=== PATIENT | female | born 1950 | race Two or more races ===

== ENCOUNTER 2016-06-20 02:07 | Inpatient (IN) | payer MEDICARE ==
--- NOTE | ~2016-06-20 | CN ---
Consultation Report [facility] [address] [place]. [address] NAME: KAROLINA FINN : 48 STATUS : ADM IN [facility]#: [id number] AGE: 66 ADM/REG DATE : 06/20/16 MR#: [id number] REPORT SERV DATE: 06/22/16 DICTATED BY: CARLYLE JACKSON DATE: 06/22/16 REPORT STATUS : Draft TRANSCRIBED BY: MODL DATE: 06/22/16 GI CONSULTATION DATE OF CONSULTATION: 06/20/2016 REASON FOR CONSULTATION: Heme-positive brown stool. HISTORY OF PRESENT ILLNESS: Ms. Finn is a 66-year-old female, who has history of hypertension, chronic kidney disease stage 3, dyslipidemia, who had been feeling ill over the past couple of weeks with increasing fatigue, dyspnea on exertion, nausea, vomiting, and diarrhea. She also has some anorexia and noticed a rash all over her body. She does have chronic hyponatremia with a sodium between 122 to 125 at baseline and it was 16 on admission. She also had a BUN of 84 and creatinine of 12.8 and was admitted to the CCU for further evaluation and management. GI has been consulted because her hemoglobin and hematocrit were low at 7.5 and 20.6. On admission, they were 5.3 and 15.1, but on digital rectal exam, she had brown stool, which was Hemoccult positive. Her MCV is 78.3, platelets 181. INR 1.3. She is currently undergoing dialysis for management of the above. PAST MEDICAL HISTORY: Hypertension, kidney stones, pre-eclampsia, dyslipidemia, chronic kidney disease stage 3, and gout. PAST SURGICAL HISTORY: . FAMILY HISTORY: Hypertension and diabetes. SOCIAL HISTORY: No smoking, alcohol, or drug use. 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 MEDICATIONS: Reviewed. ALLERGIES: REVIEWED. PHYSICAL EXAMINATION: VITAL SIGNS: The patient is afebrile. Her vital signs have been stable while in the unit. HEENT: Atraumatic and normocephalic. Anicteric. Mucous membranes moist. SKIN: She does have a rash all over her body. CARDIAC: S1 and S2. CHEST: Poor inspiratory and expiratory effort, but appears clear otherwise. ABDOMEN: Soft, nontender, nondistended. Positive bowel sounds. LABORATORY DATA: Showed WBC 9.8; hemoglobin 7.5, from 5.3; hematocrit 20.6, from 15.1; MCV 78.3; platelets 181. INR is 1.3. Sodium 142, potassium 4.2, chloride 88, bicarb 9, BUN 84, creatinine 12.8, glucose 62. IMPRESSION AND PLAN: GI has been consulted for heme-positive brown stools. Given the Consultation Report [place] [address] [place]. [address] NAME: KAROLINA FINN : [birth year] STATUS : ADM IN PAT#: [id number] AGE: 66 ADM/REG DATE : 06/20/16 MR#: [id number] REPORT SERV DATE: 06/22/16 DICTATED BY: CARLYLE JACKSON DATE: 06/22/16 REPORT STATUS : Draft TRANSCRIBED BY: DANIELE DATE: 06/22/16 patient's other comorbidities and acute clinical picture, would like to have her other more pressing problems stabilized before further investigation with endoscopy. After she becomes more stable, I may warrant endoscopic evaluation with EGD plus or minus colonoscopy. She had been seen by Dr. Dc Edwards in the past, so we will get these records and see when her last endoscopic procedures were performed. Thank you for this consultation. We will continue to follow as needed. CHEMA/DANIELE Carlyle Jackson MD / [id number] CC: Tila Salcedo MD
--- NOTE | ~2016-06-20 | OP ---
Record Of Operation [facility] [address] [place]. [address] NAME: KAROLINA CHA : 48 STATUS : ADM IN [facility]#: [id number] AGE: 66 ADM/REG DATE : 06/20/16 MR#: [id number] REPORT SERV DATE: 06/25/16 DICTATED BY: TASHI SAUNDERS DATE: 06/25/16 REPORT STATUS : Draft TRANSCRIBED BY: MODMarcela DATE: 06/25/16 DATE OF PROCEDURE: 06/24/2016 PREOPERATIVE DIAGNOSES: End-stage renal disease. POSTOPERATIVE DIAGNOSIS: End-stage renal disease. PROCEDURES: 1. Left brachiocephalic arteriovenous fistula. 2. Right IJ PermCath. SURGEON: Tashi Saunders M.D. ASSEMBLER DC FIELD RING: Andrzej Umaña. ANESTHESIA: Block and local. INDICATIONS: The patient is a 66-year-old female who has a history of chronic kidney disease, but presented with end-stage renal disease. I placed a Vas-Cath and now she needs longer term access. Risks, benefits, and alternatives were discussed. She agreed to proceed. DESCRIPTION OF PROCEDURE: After informed consent was obtained, the patient was taken to the operating room and placed in the supine position on the operating table. A block had previously been administered. The patient's left upper extremity was prepped and draped in the usual sterile fashion. I began with an ultrasound examination and found that the left cephalic vein in the forearm was of reasonable size. The basilic vein and the cephalic vein were of reasonable size in the upper arm. Having said that, her radial artery was less than 2 mm in diameter. The brachial artery was about 3 mm in diameter. Thus, I decided to perform the brachiocephalic fistula. A transverse skin incision was made just distal to the antecubital fossa. I deepened the incision. I then dissected out the brachial artery and the cephalic vein. The cephalic vein was about 3 mm in diameter. The brachial artery was about the same diameter. I systemically heparinized. I controlled the brachial artery. I created a longitudinal arteriotomy. I then spatulated the end of the cephalic vein at a branch point. I flushed it after marking it for orientation. I then sewed the end of the spatulated fistula on to the side of the brachial artery. I flushed of air and debris before tying down the sutures. Afterwards, there was good flow through the fistula. I washed out the wound, achieved hemostasis, and closed the wound in layers. At this point, a sterile dressing was applied. The right neck was prepped and draped in the usual sterile fashion. I exchanged out my catheter over a wire. I anesthetized the right chest. I tunneled a 19-cm curved HemoSplit catheter from the right chest to the right neck. I made sure that the catheter aspirated and flushed well. It was packed with saline. I washed out the right neck wound and closed in layers. The patient tolerated the procedure well without any intraprocedural complications noted. Record Of Operation [address] [place]. [facility] [address] NAME: KAROLINA CHA : [birth year] STATUS : ADM IN [facility]#: [id number] AGE: 66 ADM/REG DATE : 06/20/16 MR#: [id number] REPORT SERV DATE: 06/25/16 DICTATED BY: TASHI SAUNDERS DATE: 06/25/16 REPORT STATUS : Draft TRANSCRIBED BY: DANIELE DATE: 06/25/16 BRISEYDA/DANIELE Tashi Saunders M.D. / [id number] CC: Gerardo Urban M.D.
--- NOTE | ~2016-06-20 | DS ---
Discharge Summary [place] [address] [place]. [address] NAME: KAROLINA CHA : 48 STATUS : DIS IN PAT#: [id number] AGE: 66 ADM/REG DATE : 06/20/16 MR#: [id number] REPORT SERV DATE: 07/17/16 DICTATED BY: MOOSE MORA DATE: 07/16/16 REPORT STATUS : Draft TRANSCRIBED BY: ADNIELE DATE: 07/16/16 Data Collection from hospitalization DISCHARGE DIAGNOSES: 1. Anemia-multifactorial. 2. End-stage renal disease with hemodialysis. 3. Weakness. 4. Hypertension-primary. 5. Gastritis. 6. History of nephrolithiasis. 7. History of eclampsia. 8. Hypercholesterolemia. 9. Gout. CONSULTATIONS: Dr. Tashi Saunders, Dr. Amirah Hare, Dr. Jamila Thompson, Dr. Tila Salcedo. PROCEDURES PERFORMED: 1. Upper GI endoscopy, 06/27/2016. 2. Right IJ Vas-Cath placement, 06/20/2016. 3. Left brachiocephalic arteriovenous fistula and right IJ PermCath, 06/24/2016. 4. CT scan of the abdomen and pelvis without contrast, 06/20/2016. 5. Vein mapping of the bilateral upper extremities, 06/22/2016. 6. Carotid blood flow study, 06/24/2016. 7. Renal color flow ultrasound of the kidneys, 06/26/2016. PATHOLOGY: Gastric antrum biopsy-specimen container received empty. Gastric body biopsy- antral/fundic mucosa within normal limits. No H pylori seen on routine stain. DISCHARGE MEDICATIONS: Norvasc 5 mg twice a day, aspirin 81 mg daily as needed, Zithromax 250 mg daily, Rocaltrol 0.25 mcg daily as instructed, Tums one tablet with meals, vitamin D 5000 units daily as instructed, Pepcid 40 mg daily as instructed, ferrous sulfate 300 mg twice a day as instructed, probiotic one capsule daily as needed, Bystolic 10 mg at bedtime. CONDITION AT DISCHARGE: Stable. DISPOSITION: The patient was discharged home to be followed by home health care on a renal diet with activities as instructed. She would follow up for hemodialysis as scheduled. HOSPITAL COURSE: This is a 66-year-old female, who presented with shortness of breath and evidence of acute renal failure and severe symptomatic anemia. The patient said she had not seen a doctor in about two years. Her main complaint was dyspnea on exertion and exertional fatigue. She occasionally feels lightheaded or has had some slight nausea with occasional vomiting and some slight diarrhea as well. The patient said she had only been ill for about two weeks or so. She has had a poor appetite with a mild nonproductive cough. She had had decreased urine output. She said that for about two to three months, she has had itching all over her body and had developed a rash or at least some excoriations from itching so much over that period of time that it seemed to affect every part of her skin. She thought that she had lost between 5 and 10 pounds over the past few months. She was admitted to the [address] [address] NAME: KAROLINA CHA : 48 STATUS : DIS IN [facility]#: [id number] AGE: 66 ADM/REG DATE : 06/20/16 MR#: [id number] REPORT SERV DATE: 07/17/16 DICTATED BY: MOOSE MORA DATE: 07/16/16 REPORT STATUS : Draft TRANSCRIBED BY: DANIELE DATE: 07/16/16 hospital at this time for further evaluation and treatment. Upon admission, creatinine level was 19.8. White blood cell count was 11. Liver enzymes were within normal limits. INR level was 1.3. Stools were Hemoccult positive. Influenza study was negative. Troponin was negative. Procalcitonin level was 1.29. Chest x-ray showed no acute cardiopulmonary process. EKG revealed sinus rhythm with no QRS voltage. CT scan of the abdomen and pelvis without contrast showed chronic kidney disease, no obstruction, possible acute diverticulitis. Renal artery Doppler ultrasound was going to be performed. Aggressive IV fluids were started. Zaman catheter was placed. We were going to check serum protein electrophoresis and ESR. She was going to be transfused. IV bicarbonate drip was started. Pericarditis was suspected and echocardiogram was requested. We were going to check Clostridium difficile toxin. She does have diarrhea. She was seen in consultation by Dr. Jamila Thompson regarding acute kidney injury versus end-stage renal disease with severe metabolic acidosis and hyperkalemia. It was felt that she would need dialysis at this time for uremia and severe metabolic acidosis and hyperkalemia. Sodium level was 116. It was discussed with the patient the risks of vascular catheter placement, including the risks of CRRT, including hypotension, sodium correction, and others. The patient and her brother who is a doctor, both agree to this plan of care. The patient was seen by Dr. Tashi Saunders for evaluation of dialysis access. Potassium level was elevated at 6.2. It appeared that the patient had acute kidney injury on chronic kidney disease. It was felt that she would need a Vas-Cath placed for urgent dialysis. The patient agreed to proceed. It was felt that she would need to undergo vein mapping and would likely need PermCath or fistula or graft. She underwent left brachiocephalic arteriovenous fistula and right IJ PermCath placement by Dr. Saunders. She tolerated this well and there were no complications. She was seen by Dr. Tila Salcedo. A PICC line had been inserted. The patient was tolerating CRRT off Levophed. Blood and urine cultures were negative. SCDs/TEDs were in place. On the , she said she was feeling better. She was off vasopressors. Vancomycin was being given. On 06/22/2016, vein mapping of the bilateral upper extremities was performed. A HIT study was obtained. She said she was feeling better. Continuous SWAGE TOOLSETTER was going to be discontinued later in the day. AV fistula was going to be placed. On 06/23/2016, transfusions would be performed as needed. The plan was to transition her to intermittent hemodialysis. Hemoglobin had decreased to 7.1. On the , a carotid blood flow study was performed. She underwent left brachiocephalic arteriovenous fistula and right IJ PermCath. She tolerated this well and there were no complications. Sodium level had improved. Hemoglobin level decreased to 5.4. She was transfused. Stool was heme positive. She was tolerating hemodialysis well. She had been transfused two units of packed red blood cells. An attempt was made at physical therapy evaluation. Renal artery ultrasound was performed. She did undergo physical therapy evaluation. Sodium level increased to 137. She was seen by Dr. Amirah Hare regarding heme positive brown stool. INR level was 1.3. Creatinine level was 12.8. She felt that after the patient became more stable that she may warrant endoscopic evaluation with EGD and possible colonoscopy. She had seen Dr. Edwards in the past. On 06/27/2016, the patient was taken to the endoscopic suite by Dr. Hare, where she underwent the above-mentioned procedure. She tolerated this well and there were no complications. She had a normal esophagus. The Z-line was 40 cm from the incisors. Gastritis was seen and biopsied. There were multiple bleeding angioectasias in Discharge Summary [address] [address] NAME: KAROLINA CHA : 49 STATUS : DIS IN PAT#: [id number] AGE: 66 ADM/REG DATE : 06/20/16 MR#: [id number] REPORT SERV DATE: 07/17/16 DICTATED BY: MOOSE MORA DATE: 07/16/16 REPORT STATUS : Draft TRANSCRIBED BY: DANIELE DATE: 07/16/16 the stomach. She does have duodenitis. No specimens were collected. There was a duodenal ulcer with a clean base. No specimens were collected. On 06/28/2016, she had no new complaints. Hemodialysis therapy was performed. She was transfused two units of packed red blood cells. Hydralazine was added to her regimen and attempt to evaluate the patient by occupational therapy was performed. H and H continued to draw. She had no nausea or vomiting. Her diet was advanced to full liquids. On the , the patient reported that she was feeling better. Blood pressure range was better, but still not well controlled despite the increase in Norvasc. Hemodialysis therapy continued. HIT study was negative. White count was 12.1. On the , she reported that she was doing better. She said she had slept better the previous evening. Her itching had improved. Hemodialysis therapy continued. H and H remained stable. She did pass some dark stool overnight. On the , iron supplementation continued. Discharge planning was performed. Thrombocytopenia was resolving and her blood pressure was labile. Dialysis therapy continued. Blood cultures were negative. Oral antibiotics were continued. Hemoglobin was stable. Outpatient hemodialysis therapy would be scheduled at [facility]. Discharge instructions were given. Due to her improved and stable condition, she was discharged home to be followed by home health care with the above-stated instructions. Information collected by: Terri Zapata I submit the above information as my discharge summary. ADAM/DANIELE Moose Mora M.D. / [id number] CC: Gerardo Urban M.D. Sachin V Phade, M.D. Camille Sommer, MD
--- NOTE | ~2016-06-20 | EGD ---
EGD REPORT [facility] [address] [place]. [address] NAME: CYNDI FINN : 48 STATUS : ADM IN PAT#: [id number] AGE: 66 ADM/REG DATE : 06/20/16 MR#: [id number] REPORT SERV DATE: 06/27/16 DICTATED BY: CARLYLE JACKSON DATE: 06/27/16 REPORT STATUS : Draft TRANSCRIBED BY: [employer] DATE: 06/27/16 [facility] Patient Name: Cyndi Finn Date of : 1950 Attending MD: CARLYLE JACKSON, Procedure Date No Time: 06/27/2016 Procedure: Upper GI endoscopy Indications: Anemia, Heme positive stool Medicines: Propofol per Anesthesia Complications: No immediate complications. Estimated blood loss: Minimal. Procedure: Pre-Anesthesia Assessment: - ASA Grade Assessment: III - A patient with severe systemic disease. After obtaining informed consent, the endoscope was passed under direct vision. Throughout the procedure, the patient's blood pressure, pulse, and oxygen saturations were monitored continuously. The GIF [id number] was introduced through the mouth, and advanced to the second part of duodenum. The upper GI endoscopy was accomplished with ease. The patient tolerated the procedure fairly well. Findings: The examined esophagus was normal. The Z-line was found 40 cm from the incisors. Moderate inflammation characterized by adherent blood, congestion (edema), erosions and erythema was found in the gastric body and in the gastric antrum. Biopsies were taken with a cold forceps for Helicobacter pylori testing. Estimated blood loss was minimal. Multiple small angioectasias with bleeding were found in the gastric fundus, in the gastric body and in the gastric antrum. Hemostasis was achieved with administration of argon plasma coagulation. Mild inflammation characterized by congestion (edema) and erythema was found in the duodenal bulb and in the second part of the duodenum. No biopsies or other specimens were collected for this exam. One non-bleeding cratered duodenal ulcer with no stigmata of bleeding was found in the duodenal bulb. The lesion was 5 mm in largest dimension. No biopsies or other specimens were collected for this exam. Impression: - Normal esophagus. - Z-line 40 cm from the incisors. - Gastritis. Biopsied. - Multiple bleeding angioectasias in the stomach. - Duodenitis. No specimens collected. EGD REPORT [address] [address] NAME: CYNDI FINN : [birth year] STATUS : ADM IN [facility]#: [id number] AGE: 66 ADM/REG DATE : 06/20/16 MR#: [id number] REPORT SERV DATE: 06/27/16 DICTATED BY: CARLYLE JACKSON DATE: 06/27/16 REPORT STATUS : Draft TRANSCRIBED BY: [employer] DATE: 06/27/16 - One duodenal ulcer with clean base. No specimens collected. Recommendation: - [facility] to [facility]. - Follow an antireflux regimen. - No aspirin, ibuprofen, naproxen, or other non-steroidal anti-inflammatory drugs. - Use Protonix (pantoprazole) 40 mg PO BID for 8 weeks. - Await pathology results. - Clear liquid diet today. Procedure Code(s): --- Professional --- 81833, Esophagogastroduodenoscopy, flexible, transoral; with biopsy, single or multiple Diagnosis Code(s): --- Professional --- K29.70, Gastritis, unspecified, without bleeding K31.811, Angiodysplasia of stomach and duodenum with bleeding K29.80, Duodenitis without bleeding K26.9, Duodenal ulcer, unspecified as acute or chronic, without hemorrhage or perforation D64.9, Anemia, unspecified R19.5, Other fecal abnormalities CPT copyright 2013 [employer]. All rights reserved. The codes documented in this report are preliminary and upon research development manager review may be revised to meet current compliance requirements. CARLYLE JACKSON, 06/27/2016 1:14 PM This report has been signed electronically. Number of Addenda: 0 Note Initiated On: 06/27/2016 12:27 PM Scope Withdrawal Time 0 hours 0 minutes 0 seconds [address] [address]
--- NOTE | ~2016-06-20 | CN ---
Consultation Report [facility] [place]. [address] NAME: KAROLINA CHA : 48 STATUS : ADM IN PAT#: [id number] AGE: 66 ADM/REG DATE : 06/20/16 MR#: [id number] REPORT SERV DATE: 06/24/16 DICTATED BY: TASHI SAUNDERS DATE: 06/23/16 REPORT STATUS : Draft TRANSCRIBED BY: MODL DATE: 06/23/16 CONSULT NOTE. DATE OF CONSULTATION: 06/20/2016 REASON FOR CONSULTATION: Evaluation for dialysis access. BRIEF HISTORY: The patient is a 66-year-old female with a past medical history significant for stage 3 chronic kidney disease, hypertension, and hyperlipidemia, who presents to the hospital with shortness of breath and anemia. She is noted to have hyperkalemia and acute kidney injury. I was consulted for dialysis access. The patient complains of the aforementioned shortness of breath and some generalized itching. PAST MEDICAL HISTORY: 1. Chronic kidney disease, stage 3 with a baseline creatinine of about 1.7. 2. Pulmonary nodule. 3. Nephrolithiasis. 4. Renal artery stenosis. 5. Gout. 6. Hypertension. 7. Hyperlipidemia. 8. Hyponatremia. PAST SURGICAL HISTORY: Includes . SOCIAL HISTORY: She is of [place] descent. She lives in [place], [place]. She denies tobacco, alcohol, or drug use. FAMILY HISTORY: Diabetes and hypertension. MEDICATIONS: Medications are documented on the chart and were reviewed. ALLERGIES: ALLERGIES ARE DOCUMENTED ON THE CHART AND WERE REVIEWED. REVIEW OF SYSTEMS: A complete review of systems was performed and is negative with the exception of the aforementioned findings. PHYSICAL EXAMINATION: VITAL SIGNS: Documented on the chart and were reviewed. GENERAL: The patient is awake, alert, and oriented in no apparent distress. HEAD AND NECK: Examination is benign without any carotid bruits. HEART: Regular rate and rhythm. LUNGS: Clear. Consultation Report [facility] [place]. [address] NAME: KAROLINA CHA : 48 STATUS : ADM IN PAT#: [id number] AGE: 66 ADM/REG DATE : 06/20/16 MR#: [id number] REPORT SERV DATE: 06/24/16 DICTATED BY: TASHI SAUNDERS DATE: 06/23/16 REPORT STATUS : Draft TRANSCRIBED BY: DANIELE DATE: 06/23/16 ABDOMEN: Soft, nontender, and nondistended with a nonaneurysmal aorta. EXTREMITIES: She has a normal complement of upper extremity pulses without any significant edema or ischemic ulcerations. Examination of the lower extremities reveals palpable femoral pulses. Her feet are pink and warm. She has no significant edema or ischemic ulcerations. NEUROLOGICAL: Grossly nonfocal. MUSCULOSKELETAL: Examination is benign. DERMATOLOGICAL: Evaluation reveals diffuse excoriations and skin discoloration likely because of her uremia. LABORATORY DATA: Her laboratory investigations reveal a metabolic acidosis. Her sodium is low. Her potassium is elevated to 6.2. Her BUN is 123, and her creatinine is 19.8. Her hemoglobin is 5.3. ASSESSMENT AND PLAN: It looks like this lady has acute kidney injury on chronic kidney disease. She needs a Vas-Cath for urgent dialysis. I talked to her about the risks, benefits, and alternatives of intervention. She wished to proceed. As she is right arm dominant with a complete Dez's test, I will ask the nurses to avoid IV access and blood draws on her left upper extremity. We will get vein mapping. She will likely need a PermCath with fistula or graft. POULTRY OFFAL ICER/DANIELE Tashi Saunders M.D. / [id number] CC: Tila Salcedo MD
--- NOTE | ~2016-06-20 | OP ---
Record Of Operation [facility] [address] [place]. [address] NAME: KAROLINA CHA : 48 STATUS : ADM IN [facility]#: [id number] AGE: 66 ADM/REG DATE : 06/20/16 MR#: [id number] REPORT SERV DATE: 06/21/16 DICTATED BY: TASHI SAUNDERS DATE: 06/20/16 REPORT STATUS : Draft TRANSCRIBED BY: MODL DATE: 06/20/16 DATE OF PROCEDURE: 06/20/2016 PREOPERATIVE DIAGNOSES: 1. Acute kidney injury. 2. Hyperkalemia. POSTOPERATIVE DIAGNOSES: 1. Acute kidney injury. 2. Hyperkalemia. PROCEDURE: Right IJ Vas-Cath. SURGEON: Tashi Saunders M.D. BLOCKER HEATED METAL FORMS: None. ANESTHESIA: Local. INDICATIONS: The patient is a 66-year-old female, who presented with acute kidney injury with hyperkalemia and hyponatremia. I talked to her about the risks, benefits, and alternatives of Vas-Cath placement for emergent dialysis. She agreed to proceed. DESCRIPTION OF PROCEDURE: After informed consent was obtained, the patient's right neck was prepped and draped in the usual sterile fashion. Ultrasound-guided access was obtained of the right internal jugular vein. I personally printed the image to place on the chart. I made a small skin incision and passed a wire centrally. I dilated the tract and inserted a 15 cm Vas-Cath. The catheter was sutured in place. A sterile dressing was applied. The patient tolerated the procedure well without any intraprocedural complications noted. CANE PUSHER/DANIELE Tashi Saunders M.D. / [id number] CC: MD Jamila Lopez M.D.
--- NOTE | ~2016-06-20 | CN ---
Consultation Report [facility] [address] [place]. [address] NAME: KAROLINA FINN : 48 STATUS : ADM IN [facility]#: [id number] AGE: 66 ADM/REG DATE : 06/20/16 MR#: [id number] REPORT SERV DATE: 06/20/16 DICTATED BY: JAMILA NAVARREET DATE: 06/20/16 REPORT STATUS : Draft TRANSCRIBED BY: MODL DATE: 06/20/16 NEPHROLOGY CONSULTATION DATE OF CONSULTATION: REASON FOR CONSULTATION: Acute kidney injury versus end-stage renal disease with severe metabolic acidosis and hyperkalemia. HISTORY OF PRESENT ILLNESS: Mrs. Finn is a 66-year-old white female with past medical history of chronic kidney disease stage 3, pulmonary nodule, nephrolithiasis, gout, hyperlipidemia, and hypertension who presented to the hospital with primary complaints of shortness of breath and anemia. She states that she has not seen a doctor in over 2 years and at one point, did see Dr. Carpio. She did not return for followup and this has been several years ago. She states that for the past two weeks, she has felt poorly with dyspnea on exertion, fatigue, lightheaded, nausea, vomiting, diarrhea, poor appetite, and reduced urine output. She has also had a diffuse rash with excoriations all over her body. On presentation to the ER, she was found to have a BUN and creatinine of 123 and 19.8 with a potassium of 6.2 and a CO2 of 7. Reviewing old records, she had a creatinine baseline of 1.3 to 1.7 in 2013. Additionally her serum sodium was 116 and pH was 7.27. CT abdomen and pelvis shows symmetric renal atrophy with body anasarca and no obstruction. Urinalysis shows specific gravity of 1.013, pH of 5, protein of 100, 17 white blood cells, and 2 red blood cells. PAST MEDICAL AND SURGICAL HISTORY: 1. Chronic kidney disease stage 3. Baseline creatinine 1.3 to 1.7 in 2013. 2. Pulmonary nodule. 3. Nephrolithiasis. 4. Severe renal artery stenosis in 2009. 5. Gout. 6. Hyperlipidemia. 7. Hypertension. 8. Hyponatremia. Sodium ranged 122 to 125 in 2013. 9. . SOCIAL HISTORY: The patient emigrated to [place] from the [place] in 1983. She has a brother who is a physician who lives in [place] Dr. Finnegan. She lives in [place], [place]. She is single and lives alone. No tobacco, alcohol, or drug use. 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 FAMILY HISTORY: Diabetes and hypertension. No known kidney disease. HOME MEDICATIONS: 1. Norvasc 5 twice a day. 2. Aspirin 81 daily. Consultation Report [address] [place]. [address] NAME: KAROLINA FINN : 48 STATUS : ADM IN [facility]#: [id number] AGE: 66 ADM/REG DATE : 06/20/16 MR#: [id number] REPORT SERV DATE: 06/20/16 DICTATED BY: JAMILA NAVARRETE DATE: 06/20/16 REPORT STATUS : Draft TRANSCRIBED BY: DANIELE DATE: 06/20/16 3. Bystolic 10 daily. REVIEW OF SYSTEMS: All systems reviewed and negative excluding those mentioned and highlighted in the history of present illness. PHYSICAL EXAMINATION: VITAL SIGNS: Blood pressure 108/51, O2 of 100, temperature 97, pulse 64, and respiratory rate 16. GENERAL: This is a chronically ill female, resting comfortably. No acute distress. HEENT: Normocephalic, atraumatic. Oropharynx clear. No exudate. NECK: Supple. No JVD or thyromegaly. No carotid bruits. Trachea midline. No stridor. CARDIOVASCULAR: Regular rate and rhythm. S1, S2. Possible soft systolic ejection murmur and rub. GI: Abdomen soft, nontender, nondistended. No hepatosplenomegaly appreciated. Bowel sounds positive over 4 quadrants. EXTREMITIES: No cyanosis or clubbing. No edema. SKIN: No breakdown. No edema. She does have diffuse excoriations over all extremities. LYMPH: No supraclavicular or cervical, inguinal, or axillary adenopathy. NEUROLOGIC: Cranial nerves 2 through 12 grossly intact. Strength 5/5 x4 extremities. Sensory examination within normal limits. MUSCULOSKELETAL: Full range of motion in all joints. No crepitus or joint effusions. LABS AND DIAGNOSTIC DATA: A pH 7.27, PCO2 is 18, PO2 is 125, O2 saturation 98. Sodium 116, potassium 6.2, chloride 85, bicarb 7, BUN 123, and creatinine 19.8. Troponin 0.02. WBC 11, hemoglobin 5.3, hematocrit 15.1, and platelets 371. ASSESSMENT: 1. Acute kidney injury versus end-stage renal disease-suspect the latter with history of renal artery stenosis, hypertension, multiple uremic symptoms, profound anemia and no recent medical care with bilateral renal atrophy on imaging. 2. Hyponatremia. 3. Severe metabolic acidosis. 4. Severe anemia, likely a result of her renal failure. 5. ? Pericarditis. PLAN: 1. Needs dialysis today for uremia, severe metabolic acidosis and hyperkalemia. The confounding issue in her is that she has a sodium of 116. The only way to safely correct this is with CRRT. 2. Discussed with the patient reviewing the risks of vascular catheter placement including hypotension, infection, bleeding, arterial or nerve injury, pneumothorax, and others. I reviewed the risks of CRRT including hypotension, sodium correction, and others. She and her brother who is a doctor, both agree to plan of care. I did speak with her brother, Dr. Finnegan, phone #[phone]. Consultation Report [address] [address] NAME: KAROLINA FINN : 48 STATUS : ADM IN [facility]#: [id number] AGE: 66 ADM/REG DATE : 06/20/16 MR#: [id number] REPORT SERV DATE: 06/20/16 DICTATED BY: JAMILA NAVARRETE DATE: 06/20/16 REPORT STATUS : Draft TRANSCRIBED BY: DANIELE DATE: 06/20/16 3. Further recommendations to follow. Thank you for consultation on this critically ill lady. JESUS ALBERTO/DANIELE Jamila Navarrete M.D. / [id number] CC: Tila Salcedo MD
--- NOTE | ~2016-06-20 | HP ---
History And Physical [address] [place]. [address] NAME: KAROLINA CHA : 48 STATUS : ADM IN [facility]#: [id number] AGE: 66 ADM/REG DATE : 06/20/16 MR#: [id number] REPORT SERV DATE: 06/20/16 DICTATED BY: LEIDA LAROSE DATE: 06/20/16 REPORT STATUS : Draft TRANSCRIBED BY: MODL DATE: 06/20/16 DATE OF ADMISSION: 06/20/2016 CHIEF COMPLAINT: A 66-year-old female presenting with shortness of breath and evidence of acute renal failure and severe symptomatic anemia. HISTORY OF PRESENT ILLNESS: The patient's history was obtained through an interview with the patient and her brother, Dr. Finnegan, a physician in [place] by telephone, coupled with review of [facility] medical records. The patient admits that she has not seen a doctor in about two years, but she claims she has only been ill for about two weeks or so. Her main complaint has been dyspnea on exertion and exertional fatigue, occasionally she feels lightheaded or has had some slight nausea with occasional vomiting, and some slight diarrhea as well. She has had poor appetite, a mild nonproductive cough. She admits to having decreased urine output. She states that for about 2 to 3 months she has had itching all over her body and now has developed "rash" or at least some excoriations from itching so much over that period of time, it seems to affect every part of her skin. She denies any pain though. No headache. No chest pain. No abdominal pain. No back pain. She believes she has lost between 5 and 10 pounds over the last few months. REVIEW OF SYSTEMS: Otherwise, a 14-point review of systems was obtained and was negative. PAST MEDICAL HISTORY: 1. Hyponatremia with baseline sodium between 122 and 125 in 2012 with a history of polydipsia ? 2. Chronic kidney disease, stage 3. Baseline creatinine of 1.3 to 1.7 in 2012. 3. Pulmonary nodule. 4. Nephrolithiasis. 5. "Severe" renal artery stenosis in 2009, but apparently the patient never had any intervention for this ? 6. Gout. 7. Elevated cholesterol. 8. Eclampsia. 9. Hypertension. PAST SURGICAL HISTORY: . History And Physical [address] [place]. [address] NAME: KAROLINA CHA : 48 STATUS : ADM IN [facility]#: [id number] AGE: 66 ADM/REG DATE : 06/20/16 MR#: [id number] REPORT SERV DATE: 06/20/16 DICTATED BY: LEIDA LAROSE DATE: 06/20/16 REPORT STATUS : Draft TRANSCRIBED BY: MODMarcela DATE: 06/20/16 ALLERGIES: NO KNOWN DRUG ALLERGIES. SOCIAL HISTORY: The patient immigrated to [place] from the [facility] in 1983. She has a brother who is a physician who lives in [place], Dr. Finnegan. The patient herself lives in [place], [place]. She is single, lives alone. No tobacco abuse. No alcohol abuse. She has no biological children. Has had multiple miscarriages. 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 FAMILY HISTORY: Diabetes and hypertension, but no known kidney disease. CURRENT MEDICATIONS: 1. Norvasc 5 mg p.o. b.i.d. 2. Aspirin 81 mg p.o. daily. 3. Probiotic. 4. Bystolic 10 mg p.o. daily. PHYSICAL EXAMINATION: VITAL SIGNS: Temperature 98.2, pulse 61, blood pressure 101/39, respiratory rate 18, and O2 saturation 100% on room air. GENERAL: A pleasant, cooperative, Filipina female. She appears chronically ill, but in no evidence of acute distress. HEENT: Pupils equal, round, and reactive to light. The patient has significant conjunctival pallor, but no scleral icterus. Nares are patent. Oropharynx is clear of obstruction. Dry mucous membranes. NECK: Trachea midline. No thyromegaly. LYMPH: No cervical lymphadenopathy is appreciated. No supraclavicular lymphadenopathy is appreciated. DERMATOLOGICAL: The patient has excoriations over her body which cause extensive scabbing of her skin, otherwise warm and dry extremities. The patient has peripheral pallor, but no cyanosis. RESPIRATORY: Clear to auscultation at bases. No wheezes, rales, or rhonchi. Normal respiratory effort. CARDIOVASCULAR: Regular rate and rhythm. The patient has a pericardial rub by my exam, but no murmurs. She has no extremity edema at this time. ABDOMEN: Soft, nontender, and nondistended. Normal bowel sounds auscultated throughout. No hepatosplenomegaly. PSYCHIATRIC: A notably flat affect. The patient is in slightly anxious mood. She is alert and oriented x3. LABORATORY DATA: Sodium 116, potassium 6.2, chloride 85, bicarb 7, BUN 12, creatinine 19.8, and glucose 95. White blood cell count 11, hemoglobin 5, hematocrit 15, and platelets 371. Urinalysis shows 100 protein, 17 white blood cells, moderate leukocyte esterase. Liver enzymes within normal limits. History And Physical [address] [address] NAME: KAROLINA CHA : 48 STATUS : ADM IN [facility]#: [id number] AGE: 66 ADM/REG DATE : 06/20/16 MR#: [id number] REPORT SERV DATE: 06/20/16 DICTATED BY: LEIDA LAROSE DATE: 06/20/16 REPORT STATUS : Draft TRANSCRIBED BY: MODMarcela DATE: 06/20/16 Lactic acid 1.3. INR 1.3. Hemoccult stools positive. Influenza negative. Procalcitonin 1.29, albumin 2.7. Troponin negative. ABG demonstrates pH 7.16, a PaCO2 of 17, a PaO2 of 107, and a bicarb of 6. STUDIES: 1. Chest x-ray by my own evaluation shows no acute cardiopulmonary process. 2. EKG by my own evaluation shows sinus rhythm, no QRS voltage. 3. CT scan of the abdomen and pelvis shows chronic kidney disease. No obstruction. There was a question of fat stranding "very early," possible acute diverticulitis seen. ASSESSMENT AND PLAN: 1. Acute renal failure. There was this history of critical renal artery stenosis, but no stent placement ? We will check a renal artery Doppler ultrasound. I discussed the case with Dr. Álvarez, crusher wet ground mica, placed a Zaman catheter. Placed on aggressive IV fluids. Check serum protein electrophoresis and ESR. 2. Severe anemia. We will transfuse blood. There was positive Hemoccult. We will obtain a GI consult with Dr. Edwards. 3. Metabolic acidosis. Place on a bicarb drip IV. 4. Severe hyponatremia, appears to be a hypovolemic hyponatremia. Place on IV fluids and monitor closely. Question whether the patient may need 3% sodium if it does not improve? 5. Diffuse rash likely from excoriations from itching. 6. Suspected pericarditis with rub on exam. Check an echocardiogram. 7. Diarrhea. Check Clostridium difficile toxin. I did discuss the case with Dr. Siomara Banks, Critical Care Physician. JEAN/DANIELE Leida Larose M.D. / [id number] CC: Gerardo Hernandez M.D.
[~2016-06-20 02:07] MED LIST: *UNABLE1; AZOR1 TA3 PO; BYSTOLIC10 MG PO
[2016-06-20 02:28] LABS: BASOPHILS 0.1 %; BASOPHILS ABSOLUTE 0.01 10/3/uL (0.0-0.16); EOSINOPHILS 7.2 %; IMMATURE GRANULOCYTES 0.1 %; IMMATURE GRANULOCYTES ABSOLUTE 0.01 10/3/uL (0.0-0.11); LYMPHOCYTES ABSOLUTE 0.22 10/3/uL (0.67-4.30); MEAN CORPUS HGB CONC 35.1 g/dL (32.0-36.0); MEAN CORPUSCULAR HEMOGLOB 26.6 pg (26.0-34.0); MEAN PLATELET VOLUME 9.3 fL (9.2-13.0); MONOCYTES 1.1 %; MONOCYTES ABSOLUTE 0.12 10/3/uL (0.21-1.20); NEUTROPHILS 89.5 %; NEUTROPHILS ABSOLUTE 9.88 10/3/uL (2.02-8.40); NUCLEATED RED BLOOD CELLS 0.5 /100WBC (0-0); PLATELET COUNT 371 10/3/uL (150-400); RBC DISTRIBUTION WIDTH 14.8 % (12.0-16.0)
[2016-06-20 02:29] LABS: ER CBC TAT 0 Hrs 08 Mins; HEMATOCRIT 15.1 % (36.0-48.0); HEMOGLOBIN 5.3 g/dL (12.0-16.0); MEAN CORPUSCULAR VOLUME 75.9 fL (80-100); RED CELL COUNT 1.99 10/6/uL (4.0-5.6)
[2016-06-20 02:30] LABS: MANUAL DIFF NO %
[2016-06-20 02:40] LABS: INTERNATIONAL NORMAL RATI 1.3 UNITS (-); PARTIAL THROMBO TIME 29.4 SEC (22.5-37.2)
[2016-06-20 02:43] LABS: INFLUENZA A SCREEN NEGATIVE (NEGATIVE); INFLUENZA B SCREEN NEGATIVE (NEGATIVE)
[2016-06-20 02:43] LABS: LACTATE 1.3 MMOL/L (0.3-2.4)
[2016-06-20 02:49] LABS: CHEST PAIN PROFILE TAT 0 Hrs 28 Mins; GLUCOSE, SERUM 95 MG/DL (60-99); SGPT(ALT) 14 U/L (5-65); TOTAL BILIRUBIN 0.3 MG/DL (0-1.2); TROPONIN I <0.02 NG/ML (<0.05)
[2016-06-20 02:51] LABS: BUN (BLOOD UREA NITROGEN) 123 MG/DL (6-23); CALCIUM, SERUM 6.3 MG/DL (8.5-10.4); CHLORIDE, SERUM 85 MMOL/L (96-112); CO2 (CARBON DIOXIDE) 7 MMOL/L (24-34); GFR AFRICAN AMERICAN 2 ML/MIN (>=60); GFR NON AFRICAN AMERICAN 2 ML/MIN (>=60); POTASSIUM, SERUM 6.2 MMOL/L (3.5-5.3); SODIUM, SERUM 116 MMOL/L (135-148)
[2016-06-20 02:52] LABS: ALBUMIN 2.7 G/DL (3.5-5.0); ALKALINE PHOSPHATASE 81 U/L (45-117); DIRECT BILIRUBIN < 0.1 MG/DL (0.0-0.4); INDIRECT BILIRUBIN(NOT ORDER) 0.2 MG/DL (0.1-0.9); SGOT(AST) 24 U/L (5-40)
[2016-06-20 03:24] LABS: ASCORBIC ACID (UR NOT ORDER) NEG (NEG); BILIRUBIN, URINE NEGATIVE (NEG); ER URINALYSIS TAT 0 Hrs 00 Mins; KETONE, URINE NEGATIVE (NEG); LEUKOCYTE ESTERASE(NOT OR MOD (NEG); NITRITE (URINE) NEG (NEG); WBC (NOT ORDERED) (RFLEX) 17 (0-5)
[2016-06-20 03:31] LABS: ALLENS TEST Pos; BE (BASE EXCESS) -20.7 MEQ/L (0 +/- 2.5); CARBOXYHEMOGLOBIN 1.8 % (0-3); HEMOBLOGIN CONTENT 5.6 G/DL (12-16); INSTRUMENT SERIAL # 8087; METHEMOGLOBIN 0.7 % (0-3); O2 CONTENT 7.6 VOL% (18-24); OPERATOR ID 334499; PCO2 (CO2 TENSION) 17 MMHG (35-45); PO2 (O2 TENSION) 107 MMHG (79-93); SAMPLE Arterial; pH 7.17 (7.37-7.43)
[2016-06-20 03:33] LABS: PROCALCITONIN 1.29 ng/mL (<0.5)
[2016-06-20] MEDS ORDERED: ASAB PO (03:44)
[2016-06-20] MEDS ORDERED: PROBIOTIC PO (03:45)
[2016-06-20] MEDS ORDERED: NORV5 PO (03:46)
[2016-06-20] MEDS ORDERED: BYSTOLIC10 MG PO (03:47)
[2016-06-20 07:26] LABS: ALLENS TEST Pos; BE (BASE EXCESS) -17.2 MEQ/L (0 +/- 2.5); CARBOXYHEMOGLOBIN 0.9 % (0-3); HEMOBLOGIN CONTENT 7.9 G/DL (12-16); INSTRUMENT SERIAL # 8087; METHEMOGLOBIN 0.5 % (0-3); PCO2 (CO2 TENSION) 18 MMHG (35-45); PO2 (O2 TENSION) 125 MMHG (79-93); SAMPLE Arterial; pH 7.27 (7.37-7.43)
[2016-06-20 08:44] LABS: CHLORIDE, SERUM 84 MMOL/L (96-112); GLUCOSE, SERUM 79 MG/DL (60-99); POTASSIUM, SERUM 5.8 MMOL/L (3.5-5.3)
[2016-06-20 08:45] LABS: BUN (BLOOD UREA NITROGEN) 123 MG/DL (6-23); CALCIUM, SERUM 5.9 MG/DL (8.5-10.4); CO2 (CARBON DIOXIDE) 9 MMOL/L (24-34); GFR AFRICAN AMERICAN 2 ML/MIN (>=60); GFR NON AFRICAN AMERICAN 2 ML/MIN (>=60); SODIUM, SERUM 119 MMOL/L (135-148)
[2016-06-20 14:57] LABS: CHLORIDE, SERUM 85 MMOL/L (96-112); GLUCOSE, SERUM 69 MG/DL (60-99); SODIUM, SERUM 122 MMOL/L (135-148)
[2016-06-20 15:06] LABS: BUN (BLOOD UREA NITROGEN) 105 MG/DL (6-23); CALCIUM, SERUM 5.9 MG/DL (8.5-10.4); CO2 (CARBON DIOXIDE) 10 MMOL/L (24-34); GFR AFRICAN AMERICAN 2 ML/MIN (>=60); GFR NON AFRICAN AMERICAN 2 ML/MIN (>=60)
[2016-06-20 17:04] LABS: CHLORIDE, SERUM 88 MMOL/L (96-112); GLUCOSE, SERUM 62 MG/DL (60-99); POTASSIUM, SERUM 4.2 MMOL/L (3.5-5.3); SODIUM, SERUM 122 MMOL/L (135-148)
[2016-06-20 17:05] LABS: BUN (BLOOD UREA NITROGEN) 84 MG/DL (6-23); CO2 (CARBON DIOXIDE) 9 MMOL/L (24-34); GFR AFRICAN AMERICAN 3 ML/MIN (>=60); GFR NON AFRICAN AMERICAN 3 ML/MIN (>=60)
[2016-06-20 17:18] LABS: HEMATOCRIT 21.8 % (36.0-48.0); HEMOGLOBIN 7.9 g/dL (12.0-16.0)
[2016-06-20 20:11] LABS: CHLORIDE, SERUM 87 MMOL/L (96-112); GLUCOSE, SERUM 61 MG/DL (60-99); POTASSIUM, SERUM 3.9 MMOL/L (3.5-5.3); SODIUM, SERUM 120 MMOL/L (135-148)
[2016-06-20 20:13] LABS: BUN (BLOOD UREA NITROGEN) 72 MG/DL (6-23); CALCIUM, SERUM 6.3 MG/DL (8.5-10.4); CO2 (CARBON DIOXIDE) 10 MMOL/L (24-34); GFR AFRICAN AMERICAN 4 ML/MIN (>=60); GFR NON AFRICAN AMERICAN 3 ML/MIN (>=60); PHOSPHORUS, SERUM 6.1 MG/DL (2.5-4.5)
[2016-06-20 22:01] LABS: BASOPHILS 0 %; EOSINOPHILS 20.9 %; EOSINOPHILS ABSOLUTE 1.99 10/3/uL (0.0-0.53); HEMOGLOBIN 7.1 g/dL (12.0-16.0); IMMATURE GRANULOCYTES 0.4 %; IMMATURE GRANULOCYTES ABSOLUTE 0.04 10/3/uL (0.0-0.11); LYMPHOCYTES 3.3 %; LYMPHOCYTES ABSOLUTE 0.31 10/3/uL (0.67-4.30); MEAN CORPUS HGB CONC 35.5 g/dL (32.0-36.0); MEAN CORPUSCULAR HEMOGLOB 28.1 pg (26.0-34.0); MEAN PLATELET VOLUME 9.4 fL (9.2-13.0); MONOCYTES 2.9 %; MONOCYTES ABSOLUTE 0.28 10/3/uL (0.21-1.20); NEUTROPHILS 72.5 %; NEUTROPHILS ABSOLUTE 6.88 10/3/uL (2.02-8.40); NUCLEATED RED BLOOD CELLS 0.5 /100WBC (0-0); RBC DISTRIBUTION WIDTH 14.5 % (12.0-16.0); WHITE BLOOD CELLS 9.5 10/3/uL (4.5-10.5)
[2016-06-20 22:04] LABS: MEAN CORPUSCULAR VOLUME 79.1 fL (80-100); PLATELET COUNT 139 10/3/uL (150-400); RED CELL COUNT 2.53 10/6/uL (4.0-5.6)
[2016-06-20 22:05] LABS: MANUAL DIFF NO %
[2016-06-20 22:12] LABS: CALCIUM, SERUM 7.2 MG/DL (8.5-10.4); CHLORIDE, SERUM 90 MMOL/L (96-112); GFR AFRICAN AMERICAN 5 ML/MIN (>=60); GFR NON AFRICAN AMERICAN 4 ML/MIN (>=60); GLUCOSE, SERUM 55 MG/DL (60-99); PHOSPHORUS, SERUM 5.2 MG/DL (2.5-4.5); POTASSIUM, SERUM 3.8 MMOL/L (3.5-5.3); SODIUM, SERUM 123 MMOL/L (135-148)
[2016-06-20 22:13] LABS: BUN (BLOOD UREA NITROGEN) 60 MG/DL (6-23); CO2 (CARBON DIOXIDE) 12 MMOL/L (24-34); CREATININE 9.08 MG/DL (0.55-1.02)
[2016-06-21 03:56] LABS: ALLENS TEST Pos; BE (BASE EXCESS) -6.4 MEQ/L (0 +/- 2.5); CARBOXYHEMOGLOBIN 0.3 % (0-3); HCO3 (ACTUAL BICARBONATE) 18.2 MEQ/L (23-27); HEMOBLOGIN CONTENT 7.5 G/DL (12-16); INSTRUMENT SERIAL # 35151; O2 CONTENT 10.4 VOL% (18-24); OPERATOR ID 13861; PCO2 (CO2 TENSION) 32 MMHG (35-45); PO2 (O2 TENSION) 128 MMHG (79-93); SAMPLE Arterial; pH 7.37 (7.37-7.43)
[2016-06-21 04:21] LABS: BASOPHILS 0.2 %; BASOPHILS ABSOLUTE 0.01 10/3/uL (0.0-0.16); EOSINOPHILS 25.6 %; EOSINOPHILS ABSOLUTE 1.55 10/3/uL (0.0-0.53); IMMATURE GRANULOCYTES 0.2 %; IMMATURE GRANULOCYTES ABSOLUTE 0.01 10/3/uL (0.0-0.11); LYMPHOCYTES ABSOLUTE 0.36 10/3/uL (0.67-4.30); MEAN CORPUS HGB CONC 37.2 g/dL (32.0-36.0); MEAN PLATELET VOLUME 8.7 fL (9.2-13.0); MONOCYTES 3.3 %; NEUTROPHILS 64.7 %; NEUTROPHILS ABSOLUTE 3.92 10/3/uL (2.02-8.40); RBC DISTRIBUTION WIDTH 14.2 % (12.0-16.0); RED CELL COUNT 2.41 10/6/uL (4.0-5.6); WHITE BLOOD CELLS 6.1 10/3/uL (4.5-10.5)
[2016-06-21 04:24] LABS: HEMATOCRIT 18.8 % (36.0-48.0); MANUAL DIFF NO %; PLATELET COUNT 81 10/3/uL (150-400)
[2016-06-21 04:42] LABS: CALCIUM, SERUM 7.3 MG/DL (8.5-10.4); CHLORIDE, SERUM 93 MMOL/L (96-112); POTASSIUM, SERUM 4.3 MMOL/L (3.5-5.3); SODIUM, SERUM 127 MMOL/L (135-148)
[2016-06-21 04:54] LABS: BUN (BLOOD UREA NITROGEN) 35 MG/DL (6-23); CO2 (CARBON DIOXIDE) 21 MMOL/L (24-34); CREATININE 5.63 MG/DL (0.55-1.02); GFR AFRICAN AMERICAN 8 ML/MIN (>=60); GFR NON AFRICAN AMERICAN 7 ML/MIN (>=60); GLUCOSE, SERUM 80 MG/DL (60-99); PHOSPHORUS, SERUM 3.1 MG/DL (2.5-4.5)
[2016-06-21 08:46] LABS: CALCIUM, SERUM 7.9 MG/DL (8.5-10.4); CHLORIDE, SERUM 92 MMOL/L (96-112); CO2 (CARBON DIOXIDE) 18 MMOL/L (24-34); GFR AFRICAN AMERICAN 13 ML/MIN (>=60); GFR NON AFRICAN AMERICAN 11 ML/MIN (>=60); GLUCOSE, SERUM 91 MG/DL (60-99); PHOSPHORUS, SERUM 2.4 MG/DL (2.5-4.5); POTASSIUM, SERUM 3.6 MMOL/L (3.5-5.3); SODIUM, SERUM 126 MMOL/L (135-148)
[2016-06-21 08:47] LABS: BUN (BLOOD UREA NITROGEN) 24 MG/DL (6-23); CREATININE 4.02 MG/DL (0.55-1.02)
[2016-06-21 09:44] LABS: BASOPHILS 0 %; EOSINOPHILS 22.2 %; EOSINOPHILS ABSOLUTE 1.02 10/3/uL (0.0-0.53); IMMATURE GRANULOCYTES 0.2 %; IMMATURE GRANULOCYTES ABSOLUTE 0.01 10/3/uL (0.0-0.11); LYMPHOCYTES 5.9 %; LYMPHOCYTES ABSOLUTE 0.27 10/3/uL (0.67-4.30); MEAN CORPUSCULAR HEMOGLOB 29.1 pg (26.0-34.0); MEAN CORPUSCULAR VOLUME 76.7 fL (80-100); MONOCYTES ABSOLUTE 0.09 10/3/uL (0.21-1.20); NEUTROPHILS 69.7 %; NEUTROPHILS ABSOLUTE 3.21 10/3/uL (2.02-8.40); RBC DISTRIBUTION WIDTH 14.3 % (12.0-16.0); RED CELL COUNT 2.23 10/6/uL (4.0-5.6); WHITE BLOOD CELLS 4.6 10/3/uL (4.5-10.5)
[2016-06-21 09:49] LABS: HEMATOCRIT 17.1 % (36.0-48.0); HEMOGLOBIN 6.5 g/dL (12.0-16.0); MANUAL DIFF NO %; PLATELET COUNT 46 10/3/uL (150-400)
[2016-06-21 10:13] LABS: POLYCHROMASIA 1+ (2-5/OIF) (0-1/OIF)
[2016-06-21 10:38] LABS: BUN (BLOOD UREA NITROGEN) 21 MG/DL (6-23); CALCIUM, SERUM 7.1 MG/DL (8.5-10.4); CHLORIDE, SERUM 91 MMOL/L (96-112); CO2 (CARBON DIOXIDE) 20 MMOL/L (24-34); SODIUM, SERUM 127 MMOL/L (135-148)
[2016-06-21 10:39] LABS: CREATININE 3.37 MG/DL (0.55-1.02); GFR AFRICAN AMERICAN 16 ML/MIN (>=60); GFR NON AFRICAN AMERICAN 13 ML/MIN (>=60); GLUCOSE, SERUM 70 MG/DL (60-99)
[2016-06-21 10:45] LABS: ALLENS TEST Pos; BE (BASE EXCESS) -6.9 MEQ/L (0 +/- 2.5); CARBOXYHEMOGLOBIN 1.7 % (0-3); HCO3 (ACTUAL BICARBONATE) 17.7 MEQ/L (23-27); HEMOBLOGIN CONTENT 6.2 G/DL (12-16); INSTRUMENT SERIAL # 8087; METHEMOGLOBIN 0.2 % (0-3); O2 CONTENT 8.3 VOL% (18-24); OPERATOR ID 14335; PCO2 (CO2 TENSION) 31 MMHG (35-45); PO2 (O2 TENSION) 82 MMHG (79-93); SAMPLE Arterial; pH 7.38 (7.37-7.43)
[2016-06-21 11:20] LABS: BASOPHILS 0 %; EOSINOPHILS 18.3 %; EOSINOPHILS ABSOLUTE 1.17 10/3/uL (0.0-0.53); HEMATOCRIT 15.9 % (36.0-48.0); HEMOGLOBIN 5.8 g/dL (12.0-16.0); IMMATURE GRANULOCYTES 0.2 %; IMMATURE GRANULOCYTES ABSOLUTE 0.01 10/3/uL (0.0-0.11); LYMPHOCYTES 4.7 %; MANUAL DIFF NO %; MEAN CORPUS HGB CONC 36.5 g/dL (32.0-36.0); MEAN CORPUSCULAR HEMOGLOB 28.4 pg (26.0-34.0); MEAN CORPUSCULAR VOLUME 77.9 fL (80-100); MONOCYTES ABSOLUTE 0.19 10/3/uL (0.21-1.20); NEUTROPHILS 73.8 %; NEUTROPHILS ABSOLUTE 4.72 10/3/uL (2.02-8.40); PLATELET COUNT 74 10/3/uL (150-400); RBC DISTRIBUTION WIDTH 14.2 % (12.0-16.0); RED CELL COUNT 2.04 10/6/uL (4.0-5.6); WHITE BLOOD CELLS 6.4 10/3/uL (4.5-10.5)
[2016-06-21 11:40] LABS: PLATELET ESTIMATE DEC (ADEQUATE); RBC MORPHOLOGY NORM (NORMAL)
[2016-06-21 13:10] LABS: CHOL/HDL RATIO(NOT ORDER) 4.5 (0-5); CHOLESTEROL 112 MG/DL (< 200); HDL CHOLESTEROL 25 MG/DL (> 49); LDL CHOLESTEROL 56 MG/DL (< 130); NON-HDL CHOLESTEROL 87 MG/DL (< 160); TRIGLYCERIDE 158 MG/DL (< 150)
[2016-06-21 13:13] LABS: PROCALCITONIN 0.34 ng/mL (<0.5)
[2016-06-21 13:26] LABS: BASOPHILS 0 %; EOSINOPHILS 22.5 %; EOSINOPHILS ABSOLUTE 1.46 10/3/uL (0.0-0.53); HEMOGLOBIN 6.3 g/dL (12.0-16.0); IMMATURE GRANULOCYTES 0.2 %; IMMATURE GRANULOCYTES ABSOLUTE 0.01 10/3/uL (0.0-0.11); LYMPHOCYTES 4.6 %; MANUAL DIFF NO %; MEAN CORPUS HGB CONC 37.1 g/dL (32.0-36.0); MEAN CORPUSCULAR HEMOGLOB 28.9 pg (26.0-34.0); MEAN PLATELET VOLUME 8.7 fL (9.2-13.0); MONOCYTES 2.8 %; MONOCYTES ABSOLUTE 0.18 10/3/uL (0.21-1.20); NEUTROPHILS 69.9 %; NEUTROPHILS ABSOLUTE 4.54 10/3/uL (2.02-8.40); PLATELET COUNT 73 10/3/uL (150-400); RBC DISTRIBUTION WIDTH 14.1 % (12.0-16.0); RED CELL COUNT 2.18 10/6/uL (4.0-5.6); WHITE BLOOD CELLS 6.5 10/3/uL (4.5-10.5)
[2016-06-21 13:49] LABS: PLATELET ESTIMATE DEC (ADEQUATE)
[2016-06-21 13:50] LABS: HYPOCHROMIA 1+ (3-10/OIF) (0-2/OIF)
[2016-06-21 14:08] LABS: CALCIUM, SERUM 7.5 MG/DL (8.5-10.4); CHLORIDE, SERUM 90 MMOL/L (96-112); CO2 (CARBON DIOXIDE) 18 MMOL/L (24-34); POTASSIUM, SERUM 3.2 MMOL/L (3.5-5.3); SODIUM, SERUM 127 MMOL/L (135-148)
[2016-06-21 14:09] LABS: BUN (BLOOD UREA NITROGEN) 16 MG/DL (6-23)
[2016-06-21 14:31] LABS: GFR AFRICAN AMERICAN 19 ML/MIN (>=60); GFR NON AFRICAN AMERICAN 16 ML/MIN (>=60); GLUCOSE, SERUM 51 MG/DL (60-99)
[2016-06-21 17:43] LABS: BUN (BLOOD UREA NITROGEN) 14 MG/DL (6-23); CALCIUM, SERUM 8.1 MG/DL (8.5-10.4); CHLORIDE, SERUM 91 MMOL/L (96-112); CO2 (CARBON DIOXIDE) 17 MMOL/L (24-34); CREATININE 2.73 MG/DL (0.55-1.02); GFR AFRICAN AMERICAN 20 ML/MIN (>=60); GFR NON AFRICAN AMERICAN 17 ML/MIN (>=60); POTASSIUM, SERUM 3.8 MMOL/L (3.5-5.3); SODIUM, SERUM 125 MMOL/L (135-148)
[2016-06-21 17:44] LABS: GLUCOSE, SERUM 71 MG/DL (60-99)
[2016-06-21 19:43] LABS: BASOPHILS 0.1 %; BASOPHILS ABSOLUTE 0.01 10/3/uL (0.0-0.16); EOSINOPHILS 9.3 %; EOSINOPHILS ABSOLUTE 1.06 10/3/uL (0.0-0.53); HEMATOCRIT 29.3 % (36.0-48.0); HEMOGLOBIN 10.5 g/dL (12.0-16.0); IMMATURE GRANULOCYTES 0.4 %; IMMATURE GRANULOCYTES ABSOLUTE 0.05 10/3/uL (0.0-0.11); LYMPHOCYTES 3.1 %; LYMPHOCYTES ABSOLUTE 0.36 10/3/uL (0.67-4.30); MEAN CORPUS HGB CONC 35.8 g/dL (32.0-36.0); MEAN CORPUSCULAR VOLUME 80.9 fL (80-100); MEAN PLATELET VOLUME 9.7 fL (9.2-13.0); MONOCYTES 2.6 %; NEUTROPHILS 84.5 %; NEUTROPHILS ABSOLUTE 9.66 10/3/uL (2.02-8.40); NUCLEATED RED BLOOD CELLS 0.7 /100WBC (0-0); RBC DISTRIBUTION WIDTH 14.2 % (12.0-16.0); RED CELL COUNT 3.62 10/6/uL (4.0-5.6); WHITE BLOOD CELLS 11.4 10/3/uL (4.5-10.5)
[2016-06-21 19:44] LABS: MANUAL DIFF NO %; PLATELET COUNT 80 10/3/uL (150-400)
[2016-06-21 21:39] LABS: BUN (BLOOD UREA NITROGEN) 12 MG/DL (6-23); CALCIUM, SERUM 8.8 MG/DL (8.5-10.4); CHLORIDE, SERUM 94 MMOL/L (96-112); CO2 (CARBON DIOXIDE) 18 MMOL/L (24-34); CREATININE 2.33 MG/DL (0.55-1.02); GFR AFRICAN AMERICAN 24 ML/MIN (>=60); GFR NON AFRICAN AMERICAN 21 ML/MIN (>=60); POTASSIUM, SERUM 3.9 MMOL/L (3.5-5.3); SODIUM, SERUM 128 MMOL/L (135-148)
[2016-06-21 21:41] LABS: GLUCOSE, SERUM 120 MG/DL (60-99)
[2016-06-22 01:16] LABS: BASOPHILS 0.1 %; BASOPHILS ABSOLUTE 0.01 10/3/uL (0.0-0.16); EOSINOPHILS 6.4 %; EOSINOPHILS ABSOLUTE 0.79 10/3/uL (0.0-0.53); HEMATOCRIT 27.5 % (36.0-48.0); HEMOGLOBIN 9.9 g/dL (12.0-16.0); IMMATURE GRANULOCYTES 0.5 %; IMMATURE GRANULOCYTES ABSOLUTE 0.06 10/3/uL (0.0-0.11); LYMPHOCYTES 3.3 %; LYMPHOCYTES ABSOLUTE 0.41 10/3/uL (0.67-4.30); MEAN CORPUSCULAR HEMOGLOB 28.9 pg (26.0-34.0); MEAN CORPUSCULAR VOLUME 80.2 fL (80-100); MEAN PLATELET VOLUME 9.7 fL (9.2-13.0); MONOCYTES 3.6 %; MONOCYTES ABSOLUTE 0.45 10/3/uL (0.21-1.20); NEUTROPHILS 86.1 %; NEUTROPHILS ABSOLUTE 10.72 10/3/uL (2.02-8.40); PLATELET COUNT 74 10/3/uL (150-400); RBC DISTRIBUTION WIDTH 13.7 % (12.0-16.0); RED CELL COUNT 3.43 10/6/uL (4.0-5.6); WHITE BLOOD CELLS 12.4 10/3/uL (4.5-10.5)
[2016-06-22 01:18] LABS: MANUAL DIFF NO %
[2016-06-22 01:32] LABS: PLATELET ESTIMATE DEC (ADEQUATE)
[2016-06-22 01:33] LABS: RBC MORPHOLOGY NORM (NORMAL)
[2016-06-22 01:36] LABS: A/G RATIO 0.9 (0.7-1.9); ALBUMIN 2.5 G/DL (3.5-5.0); ALKALINE PHOSPHATASE 74 U/L (45-117); BUN (BLOOD UREA NITROGEN) 9 MG/DL (6-23); CALCIUM, SERUM 9.4 MG/DL (8.5-10.4); CHLORIDE, SERUM 93 MMOL/L (96-112); CO2 (CARBON DIOXIDE) 20 MMOL/L (24-34); CREATININE 1.92 MG/DL (0.55-1.02); GFR AFRICAN AMERICAN 31 ML/MIN (>=60); GFR NON AFRICAN AMERICAN 26 ML/MIN (>=60); GLUCOSE, SERUM 98 MG/DL (60-99); SGOT(AST) 102 U/L (5-40); SGPT(ALT) 24 U/L (5-65); SODIUM, SERUM 131 MMOL/L (135-148); TOTAL BILIRUBIN 0.6 MG/DL (0-1.2); TOTAL PROTEIN 5.2 G/DL (6.0-8.5)
[2016-06-22 01:38] LABS: GLOBULIN 2.7 G/DL (2.5-4.1)
[2016-06-22 04:00] LABS: BE (BASE EXCESS) -7.5 MEQ/L (0 +/- 2.5); CARBOXYHEMOGLOBIN 0.1 % (0-3); HEMOBLOGIN CONTENT 10.6 G/DL (12-16); INSTRUMENT SERIAL # 35151; METHEMOGLOBIN 0.6 % (0-3); O2 CONTENT 7.1 VOL% (18-24); PCO2 (CO2 TENSION) 36 MMHG (35-45); PO2 (O2 TENSION) 25 MMHG (79-93); pH 7.31 (7.37-7.43)
[2016-06-22 04:01] LABS: ALLENS TEST Pos; OPERATOR ID 33214; SAMPLE Arterial
[2016-06-22 07:33] LABS: BASOPHILS 0.1 %; BASOPHILS ABSOLUTE 0.01 10/3/uL (0.0-0.16); EOSINOPHILS 7.3 %; EOSINOPHILS ABSOLUTE 0.75 10/3/uL (0.0-0.53); HEMATOCRIT 25.2 % (36.0-48.0); HEMOGLOBIN 9.4 g/dL (12.0-16.0); IMMATURE GRANULOCYTES 0.3 %; IMMATURE GRANULOCYTES ABSOLUTE 0.03 10/3/uL (0.0-0.11); LYMPHOCYTES ABSOLUTE 0.41 10/3/uL (0.67-4.30); MEAN CORPUS HGB CONC 37.3 g/dL (32.0-36.0); MEAN CORPUSCULAR HEMOGLOB 29.7 pg (26.0-34.0); MEAN CORPUSCULAR VOLUME 79.5 fL (80-100); MEAN PLATELET VOLUME 9.9 fL (9.2-13.0); MONOCYTES 2.9 %; NEUTROPHILS 85.4 %; NEUTROPHILS ABSOLUTE 8.75 10/3/uL (2.02-8.40); PLATELET COUNT 61 10/3/uL (150-400); RBC DISTRIBUTION WIDTH 13.5 % (12.0-16.0); RED CELL COUNT 3.17 10/6/uL (4.0-5.6); WHITE BLOOD CELLS 10.3 10/3/uL (4.5-10.5)
[2016-06-22 07:37] LABS: MANUAL DIFF NO %
[2016-06-22 07:48] LABS: BUN (BLOOD UREA NITROGEN) 6 MG/DL (6-23); CALCIUM, SERUM 9.9 MG/DL (8.5-10.4); CHLORIDE, SERUM 93 MMOL/L (96-112); CO2 (CARBON DIOXIDE) 20 MMOL/L (24-34); GFR AFRICAN AMERICAN 48 ML/MIN (>=60); GFR NON AFRICAN AMERICAN 41 ML/MIN (>=60); GLUCOSE, SERUM 94 MG/DL (60-99); POTASSIUM, SERUM 3.5 MMOL/L (3.5-5.3); SODIUM, SERUM 130 MMOL/L (135-148)
[2016-06-22 07:49] LABS: CREATININE 1.33 MG/DL (0.55-1.02)
[2016-06-22 08:10] LABS: PLATELET ESTIMATE DEC (ADEQUATE)
[2016-06-22 08:11] LABS: POLYCHROMASIA 1+ (2-5/OIF) (0-1/OIF); TOXIC GRANULATION 1+
[2016-06-22 10:00] LABS: BUN (BLOOD UREA NITROGEN) 5 MG/DL (6-23); CALCIUM, SERUM 9.7 MG/DL (8.5-10.4); CHLORIDE, SERUM 92 MMOL/L (96-112); CO2 (CARBON DIOXIDE) 21 MMOL/L (24-34); CREATININE 1.16 MG/DL (0.55-1.02); GFR AFRICAN AMERICAN 56 ML/MIN (>=60); GFR NON AFRICAN AMERICAN 49 ML/MIN (>=60); GLUCOSE, SERUM 101 MG/DL (60-99); POTASSIUM, SERUM 3.6 MMOL/L (3.5-5.3); SODIUM, SERUM 130 MMOL/L (135-148)
[2016-06-22 10:02] LABS: PHOSPHORUS, SERUM 1.9 MG/DL (2.5-4.5)
[2016-06-22 13:37] LABS: BASOPHILS 0.1 %; BASOPHILS ABSOLUTE 0.01 10/3/uL (0.0-0.16); EOSINOPHILS 8.2 %; EOSINOPHILS ABSOLUTE 0.81 10/3/uL (0.0-0.53); HEMOGLOBIN 7.9 g/dL (12.0-16.0); IMMATURE GRANULOCYTES 0.2 %; IMMATURE GRANULOCYTES ABSOLUTE 0.02 10/3/uL (0.0-0.11); LYMPHOCYTES 2.8 %; LYMPHOCYTES ABSOLUTE 0.28 10/3/uL (0.67-4.30); MEAN CORPUS HGB CONC 36.4 g/dL (32.0-36.0); MEAN CORPUSCULAR HEMOGLOB 28.9 pg (26.0-34.0); MEAN CORPUSCULAR VOLUME 79.5 fL (80-100); MEAN PLATELET VOLUME 9.2 fL (9.2-13.0); MONOCYTES 4.2 %; MONOCYTES ABSOLUTE 0.42 10/3/uL (0.21-1.20); NEUTROPHILS 84.5 %; NEUTROPHILS ABSOLUTE 8.37 10/3/uL (2.02-8.40); NUCLEATED RED BLOOD CELLS 1.1 /100WBC (0-0); PLATELET COUNT 53 10/3/uL (150-400); RBC DISTRIBUTION WIDTH 13.6 % (12.0-16.0); RED CELL COUNT 2.73 10/6/uL (4.0-5.6); WHITE BLOOD CELLS 9.9 10/3/uL (4.5-10.5)
[2016-06-22 13:38] LABS: HEMATOCRIT 21.7 % (36.0-48.0); MANUAL DIFF NO %
[2016-06-22 14:01] LABS: PLATELET ESTIMATE DEC (ADEQUATE); RBC MORPHOLOGY NORM (NORMAL)
[2016-06-22 16:41] LABS: BUN (BLOOD UREA NITROGEN) 3 MG/DL (6-23); CALCIUM, SERUM 9.4 MG/DL (8.5-10.4); CHLORIDE, SERUM 93 MMOL/L (96-112); CO2 (CARBON DIOXIDE) 20 MMOL/L (24-34); CREATININE 0.93 MG/DL (0.55-1.02); GFR AFRICAN AMERICAN 74 ML/MIN (>=60); GFR NON AFRICAN AMERICAN 64 ML/MIN (>=60); GLUCOSE, SERUM 100 MG/DL (60-99); POTASSIUM, SERUM 3.4 MMOL/L (3.5-5.3); SODIUM, SERUM 129 MMOL/L (135-148)
[2016-06-23 05:23] LABS: HEMOGLOBIN 7.1 g/dL (12.0-16.0); MEAN CORPUS HGB CONC 36.4 g/dL (32.0-36.0); MEAN CORPUSCULAR HEMOGLOB 28.9 pg (26.0-34.0); MEAN CORPUSCULAR VOLUME 79.3 fL (80-100); MEAN PLATELET VOLUME 9.6 fL (9.2-13.0); PLATELET COUNT 66 10/3/uL (150-400); RBC DISTRIBUTION WIDTH 13.8 % (12.0-16.0); RED CELL COUNT 2.46 10/6/uL (4.0-5.6); WHITE BLOOD CELLS 9.9 10/3/uL (4.5-10.5)
[2016-06-23 05:24] LABS: HEMATOCRIT 19.5 % (36.0-48.0)
[2016-06-23 05:25] LABS: MANUAL DIFF YES %
[2016-06-23 05:35] LABS: BUN (BLOOD UREA NITROGEN) 5 MG/DL (6-23); CALCIUM, SERUM 8.7 MG/DL (8.5-10.4); CHLORIDE, SERUM 93 MMOL/L (96-112); CO2 (CARBON DIOXIDE) 21 MMOL/L (24-34); CREATININE 1.81 MG/DL (0.55-1.02); GFR AFRICAN AMERICAN 33 ML/MIN (>=60); GFR NON AFRICAN AMERICAN 28 ML/MIN (>=60); GLUCOSE, SERUM 118 MG/DL (60-99); PHOSPHORUS, SERUM 2.7 MG/DL (2.5-4.5); SODIUM, SERUM 128 MMOL/L (135-148)
[2016-06-23 07:18] LABS: BAND NEUTROPHILS 6 %; BASOPHILIC STIPPLING 1+ (2-5/OIF) (0-1/OIF); EOSINOPHILS 18 %; EOSINOPHILS ABSOLUTE (CALC) 1.78 10/3/uL (0.0-0.53); HYPOCHROMIA 1+ (3-10/OIF) (0-2/OIF); LYMPHOCYTES 9 %; LYMPHOCYTES ABSOLUTE (CALC) 0.89 10/3/uL (0.67-4.30); MICROCYTES 1+ (5-10/OIF) (0-5/OIF); MONOCYTES 7 %; MONOCYTES ABSOLUTE (CALC) 0.69 10/3/uL (0.21-1.20); NEUTROPHILS ABSOLUTE (CALC) 6.53 10/3/uL (2.02-8.40); PLATELET ESTIMATE DEC (ADEQUATE); POLYCHROMASIA 1+ (2-5/OIF) (0-1/OIF); SEGMENTED NEUTROPHIL (0) 60 %; TARGET CELLS OCC (1-2/OIF) (0-1/OIF); TOTAL NUCLEATED CELLS 100
[2016-06-23 07:19] LABS: ANISOCYTOSIS 1+ (5-10/OIF) (0-5/OIF); HELMET CELLS OCC (0-2/OIF); TEARDROP SHAPED RBCS OCC (0-2/OIF); TOXIC GRANULATION SLT; VACUOLATED NEUTROPHILES OCC
[2016-06-24 05:36] LABS: ALBUMIN 1.7 G/DL (3.5-5.0); CHLORIDE, SERUM 95 MMOL/L (96-112); CO2 (CARBON DIOXIDE) 18 MMOL/L (24-34); PHOSPHORUS, SERUM 2.3 MG/DL (2.5-4.5); POTASSIUM, SERUM 3.3 MMOL/L (3.5-5.3); SODIUM, SERUM 130 MMOL/L (135-148)
[2016-06-24 05:41] LABS: BUN (BLOOD UREA NITROGEN) 10 MG/DL (6-23); CALCIUM, SERUM 7.5 MG/DL (8.5-10.4); CREATININE 3.08 MG/DL (0.55-1.02); GFR AFRICAN AMERICAN 17 ML/MIN (>=60); GFR NON AFRICAN AMERICAN 15 ML/MIN (>=60); GLUCOSE, SERUM 85 MG/DL (60-99)
[2016-06-24 05:56] LABS: HEMOGLOBIN 8.5 g/dL (12.0-16.0); MEAN CORPUS HGB CONC 36.3 g/dL (32.0-36.0); MEAN CORPUSCULAR HEMOGLOB 28.7 pg (26.0-34.0); MEAN CORPUSCULAR VOLUME 79.1 fL (80-100); MEAN PLATELET VOLUME 9.3 fL (9.2-13.0); NUCLEATED RED BLOOD CELLS 0.5 /100WBC (0-0); PLATELET COUNT 65 10/3/uL (150-400); RBC DISTRIBUTION WIDTH 14.6 % (12.0-16.0)
[2016-06-24 06:07] LABS: HEMATOCRIT 23.4 % (36.0-48.0); MANUAL DIFF YES %; RED CELL COUNT 2.96 10/6/uL (4.0-5.6); WHITE BLOOD CELLS 14.1 10/3/uL (4.5-10.5)
[2016-06-24 07:39] LABS: BAND NEUTROPHILS 2 %; BASOPHILS 1 %; BASOPHILS ABSOLUTE (CALC) 0.14 10/3/uL (0.0-0.16); EOSINOPHILS 28 %; EOSINOPHILS ABSOLUTE (CALC) 3.95 10/3/uL (0.0-0.53); LYMPHOCYTES 3 %; LYMPHOCYTES ABSOLUTE (CALC) 0.42 10/3/uL (0.67-4.30); MONOCYTES 2 %; MONOCYTES ABSOLUTE (CALC) 0.28 10/3/uL (0.21-1.20); NEUTROPHILS ABSOLUTE (CALC) 9.31 10/3/uL (2.02-8.40); SEGMENTED NEUTROPHIL (0) 64 %; TOTAL NUCLEATED CELLS 100
[2016-06-24 07:40] LABS: OVALOCYTES 1+ (3-10/OIF) (0-2/OIF); PLATELET ESTIMATE DEC (ADEQUATE); POIKILOCYTOSIS 1+ (5-10/OIF) (0-5/OIF); POLYCHROMASIA 1+ (2-5/OIF) (0-1/OIF)
[2016-06-24 12:48] LABS: HEPATITIS B SURFACE ANTIGEN NON-REACTIVE (NON-REACT)
[2016-06-24 13:07] LABS: HEPATITIS C ANTIBODY NON-REACTIVE (NON-REACT)
[2016-06-24 13:12] LABS: HEPATITIS B CORE AB IGM NON-REACTIVE (NON-REAC)
[2016-06-24 13:13] LABS: HIV COMBO NON-REACTIVE (NON REAC)
[2016-06-24 13:14] LABS: HEP A ANTIBODY IGM NON-REACTIVE (NON-REACT)
[2016-06-24 13:57] LABS: HEPARIN-INDUCED PLATELET AB NEGATIVE (NEGATIVE); HIT PATIENT O.D. 0.048 OD (0.000-0.299)
[2016-06-25 05:40] LABS: ALBUMIN 1.7 G/DL (3.5-5.0); BUN (BLOOD UREA NITROGEN) 10 MG/DL (6-23); CHLORIDE, SERUM 101 MMOL/L (96-112); CREATININE 2.62 MG/DL (0.55-1.02); GFR AFRICAN AMERICAN 21 ML/MIN (>=60); GFR NON AFRICAN AMERICAN 18 ML/MIN (>=60); GLUCOSE, SERUM 87 MG/DL (60-99); PHOSPHORUS, SERUM 1.8 MG/DL (2.5-4.5); POTASSIUM, SERUM 3.5 MMOL/L (3.5-5.3); SODIUM, SERUM 136 MMOL/L (135-148)
[2016-06-25 05:44] LABS: CALCIUM, SERUM 6.7 MG/DL (8.5-10.4); CO2 (CARBON DIOXIDE) 22 MMOL/L (24-34)
[2016-06-25 05:59] LABS: MEAN CORPUS HGB CONC 35.5 g/dL (32.0-36.0); MEAN CORPUSCULAR HEMOGLOB 28.4 pg (26.0-34.0); MEAN PLATELET VOLUME 9.4 fL (9.2-13.0); PLATELET COUNT 67 10/3/uL (150-400); RBC DISTRIBUTION WIDTH 15.1 % (12.0-16.0); WHITE BLOOD CELLS 11.7 10/3/uL (4.5-10.5)
[2016-06-25 06:00] LABS: HEMATOCRIT 15.2 % (36.0-48.0); MANUAL DIFF YES %
[2016-06-25 06:01] LABS: HEMOGLOBIN 5.4 g/dL (12.0-16.0)
[2016-06-25 06:25] LABS: BAND NEUTROPHILS 3 %; EOSINOPHILS 16 %; EOSINOPHILS ABSOLUTE (CALC) 1.87 10/3/uL (0.0-0.53); IMMATURE GRANS ABSOLUTE (CALC) 0.12 10/3/uL (0.0-0.11); LYMPHOCYTES 5 %; LYMPHOCYTES ABSOLUTE (CALC) 0.59 10/3/uL (0.67-4.30); METAMYELOCYTES 1 %; MONOCYTES 1 %; MONOCYTES ABSOLUTE (CALC) 0.12 10/3/uL (0.21-1.20); NEUTROPHILS ABSOLUTE (CALC) 9.01 10/3/uL (2.02-8.40); PLATELET ESTIMATE DEC (ADEQUATE); POLYCHROMASIA 1+ (2-5/OIF) (0-1/OIF); SEGMENTED NEUTROPHIL (0) 74 %; TOTAL NUCLEATED CELLS 100; TOXIC GRANULATION 1+
[2016-06-25 06:49] LABS: PROCALCITONIN 0.71 ng/mL (<0.5)
[2016-06-25 08:12] LABS: T PROTEIN (ELECT)(NOT OR 3.5 G/DL (6.0-8.5)
[2016-06-25 10:55] LABS: A/G 1.47 RATIO (0.9-2.10); ALB RELATIVE % 59.5 % (60.0-89.0); ALBUMIN (ELECTRO) 2.08 GM/DL (3.2-5.5); ALPHA 1 RELAT % (NOT ORD) 5.8 % (1.0-4.0); ALPHA 2 RELAT % 14.2 % (4.5-26.0); BETA GLOBULIN (SPE) 0.37 GM/DL (0.60-1.30); BETA RELATIVE % 10.5 % (9.0-22.0); GAMMA GLOBULIN (SPE) 0.35 G/DL (0.70-1.60)
[2016-06-25 21:40] LABS: HEMOGLOBIN 9.4 g/dL (12.0-16.0)
[2016-06-26 03:20] LABS: HEMOGLOBIN 9.1 g/dL (12.0-16.0); MEAN CORPUS HGB CONC 36.4 g/dL (32.0-36.0); MEAN CORPUSCULAR HEMOGLOB 29.7 pg (26.0-34.0); MEAN CORPUSCULAR VOLUME 81.7 fL (80-100); PLATELET COUNT 74 10/3/uL (150-400); RBC DISTRIBUTION WIDTH 14.5 % (12.0-16.0); WHITE BLOOD CELLS 14.3 10/3/uL (4.5-10.5)
[2016-06-26 03:25] LABS: MANUAL DIFF YES %; RED CELL COUNT 3.06 10/6/uL (4.0-5.6)
[2016-06-26 03:33] LABS: ALBUMIN 1.9 G/DL (3.5-5.0); CHLORIDE, SERUM 103 MMOL/L (96-112); CO2 (CARBON DIOXIDE) 21 MMOL/L (24-34); GLUCOSE, SERUM 83 MG/DL (60-99); POTASSIUM, SERUM 3.6 MMOL/L (3.5-5.3); SODIUM, SERUM 137 MMOL/L (135-148)
[2016-06-26 03:34] LABS: BUN (BLOOD UREA NITROGEN) 14 MG/DL (6-23); CALCIUM, SERUM 6.7 MG/DL (8.5-10.4); CREATININE 3.88 MG/DL (0.55-1.02); GFR AFRICAN AMERICAN 13 ML/MIN (>=60); GFR NON AFRICAN AMERICAN 11 ML/MIN (>=60); PHOSPHORUS, SERUM 2.5 MG/DL (2.5-4.5)
[2016-06-26 03:50] LABS: EOSINOPHILS 32 %; EOSINOPHILS ABSOLUTE (CALC) 4.58 10/3/uL (0.0-0.53); LYMPHOCYTES 5 %; LYMPHOCYTES ABSOLUTE (CALC) 0.72 10/3/uL (0.67-4.30); NEUTROPHILS ABSOLUTE (CALC) 9.01 10/3/uL (2.02-8.40); PLATELET ESTIMATE DEC (ADEQUATE); SEGMENTED NEUTROPHIL (0) 63 %; TOTAL NUCLEATED CELLS 100
[2016-06-26 03:51] LABS: RBC MORPHOLOGY NORM (NORMAL)
[2016-06-26 11:43] LABS: CREATININE (RANDOM URINE) 8.7 MG/DL; CREATININE, URINE 8.7 MG/DL; MICROALBUMIN, RANDOM URINE 74.1 MG/DL
[2016-06-27 05:22] LABS: HEMOGLOBIN 7.9 g/dL (12.0-16.0); MEAN CORPUS HGB CONC 35.7 g/dL (32.0-36.0); MEAN CORPUSCULAR HEMOGLOB 29.6 pg (26.0-34.0); MEAN CORPUSCULAR VOLUME 82.8 fL (80-100); MEAN PLATELET VOLUME 9.7 fL (9.2-13.0); PLATELET COUNT 84 10/3/uL (150-400); RBC DISTRIBUTION WIDTH 15.5 % (12.0-16.0); RED CELL COUNT 2.67 10/6/uL (4.0-5.6); WHITE BLOOD CELLS 14.2 10/3/uL (4.5-10.5)
[2016-06-27 05:25] LABS: HEMATOCRIT 22.1 % (36.0-48.0); MANUAL DIFF YES %
[2016-06-27 05:39] LABS: ALBUMIN 2.1 G/DL (3.5-5.0); BUN (BLOOD UREA NITROGEN) 11 MG/DL (6-23); CHLORIDE, SERUM 103 MMOL/L (96-112); CO2 (CARBON DIOXIDE) 23 MMOL/L (24-34); GLUCOSE, SERUM 83 MG/DL (60-99); PHOSPHORUS, SERUM 1.9 MG/DL (2.5-4.5); POTASSIUM, SERUM 3.6 MMOL/L (3.5-5.3); SODIUM, SERUM 138 MMOL/L (135-148)
[2016-06-27 05:42] LABS: CALCIUM, SERUM 6.7 MG/DL (8.5-10.4); CREATININE 3.28 MG/DL (0.55-1.02); GFR AFRICAN AMERICAN 16 ML/MIN (>=60); GFR NON AFRICAN AMERICAN 14 ML/MIN (>=60)
[2016-06-27 06:39] LABS: EOSINOPHILS 19 %; IMMATURE GRANS ABSOLUTE (CALC) 0.14 10/3/uL (0.0-0.11); LYMPHOCYTES 3 %; LYMPHOCYTES ABSOLUTE (CALC) 0.43 10/3/uL (0.67-4.30); METAMYELOCYTES 1 %; MONOCYTES 6 %; MONOCYTES ABSOLUTE (CALC) 0.85 10/3/uL (0.21-1.20); NEUTROPHILS ABSOLUTE (CALC) 10.08 10/3/uL (2.02-8.40); PLATELET ESTIMATE DEC (ADEQUATE); POLYCHROMASIA 1+ (2-5/OIF) (0-1/OIF); SEGMENTED NEUTROPHIL (0) 71 %; TOTAL NUCLEATED CELLS 100; TOXIC GRANULATION 1+
[2016-06-28 05:31] LABS: BASOPHILS 0.3 %; BASOPHILS ABSOLUTE 0.04 10/3/uL (0.0-0.16); EOSINOPHILS 33.1 %; EOSINOPHILS ABSOLUTE 4.09 10/3/uL (0.0-0.53); HEMOGLOBIN 7.1 g/dL (12.0-16.0); IMMATURE GRANULOCYTES 0.2 %; IMMATURE GRANULOCYTES ABSOLUTE 0.03 10/3/uL (0.0-0.11); LYMPHOCYTES 6.7 %; LYMPHOCYTES ABSOLUTE 0.83 10/3/uL (0.67-4.30); MEAN CORPUS HGB CONC 34.8 g/dL (32.0-36.0); MEAN CORPUSCULAR HEMOGLOB 29.5 pg (26.0-34.0); MEAN CORPUSCULAR VOLUME 84.6 fL (80-100); MEAN PLATELET VOLUME 8.6 fL (9.2-13.0); MONOCYTES 5.4 %; MONOCYTES ABSOLUTE 0.67 10/3/uL (0.21-1.20); NEUTROPHILS 54.3 %; NEUTROPHILS ABSOLUTE 6.69 10/3/uL (2.02-8.40); PLATELET COUNT 99 10/3/uL (150-400); RBC DISTRIBUTION WIDTH 15.9 % (12.0-16.0); RED CELL COUNT 2.41 10/6/uL (4.0-5.6); WHITE BLOOD CELLS 12.4 10/3/uL (4.5-10.5)
[2016-06-28 05:41] LABS: HEMATOCRIT 20.4 % (36.0-48.0)
[2016-06-28 05:42] LABS: MANUAL DIFF NO %
[2016-06-28 05:48] LABS: ALBUMIN 2.1 G/DL (3.5-5.0); CHLORIDE, SERUM 105 MMOL/L (96-112); CO2 (CARBON DIOXIDE) 22 MMOL/L (24-34); GLUCOSE, SERUM 81 MG/DL (60-99); POTASSIUM, SERUM 3.3 MMOL/L (3.5-5.3); SODIUM, SERUM 141 MMOL/L (135-148)
[2016-06-28 05:57] LABS: BUN (BLOOD UREA NITROGEN) 17 MG/DL (6-23); CALCIUM, SERUM 6.8 MG/DL (8.5-10.4); CREATININE 4.37 MG/DL (0.55-1.02); GFR AFRICAN AMERICAN 11 ML/MIN (>=60); GFR NON AFRICAN AMERICAN 10 ML/MIN (>=60); PHOSPHORUS, SERUM 2.5 MG/DL (2.5-4.5)
[2016-06-28 07:11] LABS: BAND NEUTROPHILS 6 %; EOSINOPHILS 23 %; EOSINOPHILS ABSOLUTE (CALC) 2.85 10/3/uL (0.0-0.53); LYMPHOCYTES 4 %; MONOCYTES 3 %; MONOCYTES ABSOLUTE (CALC) 0.37 10/3/uL (0.21-1.20); NEUTROPHILS ABSOLUTE (CALC) 8.68 10/3/uL (2.02-8.40); SEGMENTED NEUTROPHIL (0) 64 %; TOTAL NUCLEATED CELLS 100
[2016-06-28 07:12] LABS: PLATELET ESTIMATE DEC (ADEQUATE); RBC MORPHOLOGY NORM (NORMAL)
[2016-06-29 08:04] LABS: MEAN CORPUS HGB CONC 34.8 g/dL (32.0-36.0); MEAN CORPUSCULAR VOLUME 86.2 fL (80-100); MEAN PLATELET VOLUME 8.5 fL (9.2-13.0); PLATELET COUNT 72 10/3/uL (150-400); RBC DISTRIBUTION WIDTH 15.4 % (12.0-16.0); WHITE BLOOD CELLS 11.7 10/3/uL (4.5-10.5)
[2016-06-29 08:08] LABS: HEMATOCRIT 29.3 % (36.0-48.0); HEMOGLOBIN 10.2 g/dL (12.0-16.0)
[2016-06-29 08:09] LABS: MANUAL DIFF YES %
[2016-06-29 08:27] LABS: EOSINOPHILS 25 %; EOSINOPHILS ABSOLUTE (CALC) 2.93 10/3/uL (0.0-0.53); LYMPHOCYTES 4 %; LYMPHOCYTES ABSOLUTE (CALC) 0.47 10/3/uL (0.67-4.30); MONOCYTES 5 %; MONOCYTES ABSOLUTE (CALC) 0.59 10/3/uL (0.21-1.20); NEUTROPHILS ABSOLUTE (CALC) 7.72 10/3/uL (2.02-8.40); PLATELET ESTIMATE DEC (ADEQUATE); RBC MORPHOLOGY NORM (NORMAL); SEGMENTED NEUTROPHIL (0) 66 %; TOTAL NUCLEATED CELLS 100
[2016-06-29 08:38] LABS: ALBUMIN 2.5 G/DL (3.5-5.0); CHLORIDE, SERUM 105 MMOL/L (96-112); CO2 (CARBON DIOXIDE) 24 MMOL/L (24-34); GLUCOSE, SERUM 92 MG/DL (60-99); POTASSIUM, SERUM 3.3 MMOL/L (3.5-5.3); SODIUM, SERUM 141 MMOL/L (135-148)
[2016-06-29 08:41] LABS: BUN (BLOOD UREA NITROGEN) 13 MG/DL (6-23); CALCIUM, SERUM 6.8 MG/DL (8.5-10.4); CREATININE 3.41 MG/DL (0.55-1.02); GFR AFRICAN AMERICAN 15 ML/MIN (>=60); GFR NON AFRICAN AMERICAN 13 ML/MIN (>=60); PHOSPHORUS, SERUM 1.6 MG/DL (2.5-4.5)
[2016-06-30 04:35] LABS: HEMOGLOBIN 9.7 g/dL (12.0-16.0); MEAN CORPUS HGB CONC 34.6 g/dL (32.0-36.0); MEAN CORPUSCULAR HEMOGLOB 29.8 pg (26.0-34.0); MEAN CORPUSCULAR VOLUME 85.9 fL (80-100); MEAN PLATELET VOLUME 9.6 fL (9.2-13.0); RBC DISTRIBUTION WIDTH 16.2 % (12.0-16.0); RED CELL COUNT 3.26 10/6/uL (4.0-5.6); WHITE BLOOD CELLS 13.7 10/3/uL (4.5-10.5)
[2016-06-30 04:36] LABS: MANUAL DIFF YES %; PLATELET COUNT 99 10/3/uL (150-400)
[2016-06-30 04:55] LABS: ALBUMIN 2.5 G/DL (3.5-5.0); CHLORIDE, SERUM 108 MMOL/L (96-112); CO2 (CARBON DIOXIDE) 23 MMOL/L (24-34); GLUCOSE, SERUM 85 MG/DL (60-99); SODIUM, SERUM 140 MMOL/L (135-148)
[2016-06-30 04:56] LABS: BUN (BLOOD UREA NITROGEN) 20 MG/DL (6-23); CALCIUM, SERUM 6.8 MG/DL (8.5-10.4); CREATININE 4.19 MG/DL (0.55-1.02); EOSINOPHILS 22 %; EOSINOPHILS ABSOLUTE (CALC) 3.01 10/3/uL (0.0-0.53); GFR AFRICAN AMERICAN 12 ML/MIN (>=60); GFR NON AFRICAN AMERICAN 10 ML/MIN (>=60); LYMPHOCYTES 4 %; LYMPHOCYTES ABSOLUTE (CALC) 0.55 10/3/uL (0.67-4.30); MONOCYTES 1 %; MONOCYTES ABSOLUTE (CALC) 0.14 10/3/uL (0.21-1.20); PHOSPHORUS, SERUM 1.1 MG/DL (2.5-4.5); POTASSIUM, SERUM 4.6 MMOL/L (3.5-5.3); SEGMENTED NEUTROPHIL (0) 73 %; TOTAL NUCLEATED CELLS 100
[2016-06-30 04:57] LABS: ANISOCYTOSIS 1+ (5-10/OIF) (0-5/OIF); PLATELET ESTIMATE SLT DEC (ADEQUATE); RBC MORPHOLOGY ABN (NORMAL)
[2016-07-01 05:31] LABS: ALBUMIN 2.4 G/DL (3.5-5.0); CHLORIDE, SERUM 107 MMOL/L (96-112); CO2 (CARBON DIOXIDE) 22 MMOL/L (24-34); GLUCOSE, SERUM 86 MG/DL (60-99); POTASSIUM, SERUM 4.6 MMOL/L (3.5-5.3); SODIUM, SERUM 141 MMOL/L (135-148)
[2016-07-01 05:34] LABS: BUN (BLOOD UREA NITROGEN) 28 MG/DL (6-23); CALCIUM, SERUM 6.4 MG/DL (8.5-10.4); CREATININE 5.13 MG/DL (0.55-1.02); GFR AFRICAN AMERICAN 9 ML/MIN (>=60); GFR NON AFRICAN AMERICAN 8 ML/MIN (>=60); HEMOGLOBIN 9.4 g/dL (12.0-16.0); MEAN CORPUS HGB CONC 34.8 g/dL (32.0-36.0); MEAN CORPUSCULAR HEMOGLOB 30.2 pg (26.0-34.0); MEAN CORPUSCULAR VOLUME 86.8 fL (80-100); MEAN PLATELET VOLUME 9.4 fL (9.2-13.0); PHOSPHORUS, SERUM 2.7 MG/DL (2.5-4.5); PLATELET COUNT 120 10/3/uL (150-400); RBC DISTRIBUTION WIDTH 16.5 % (12.0-16.0); RED CELL COUNT 3.11 10/6/uL (4.0-5.6); WHITE BLOOD CELLS 12.1 10/3/uL (4.5-10.5)
[2016-07-01 05:50] LABS: MANUAL DIFF YES %
[2016-07-01 07:33] LABS: EOSINOPHILS 23 %; EOSINOPHILS ABSOLUTE (CALC) 2.78 10/3/uL (0.0-0.53); LYMPHOCYTES 4 %; LYMPHOCYTES ABSOLUTE (CALC) 0.48 10/3/uL (0.67-4.30); MONOCYTES 6 %; MONOCYTES ABSOLUTE (CALC) 0.73 10/3/uL (0.21-1.20); NEUTROPHILS ABSOLUTE (CALC) 8.11 10/3/uL (2.02-8.40); SEGMENTED NEUTROPHIL (0) 67 %; TOTAL NUCLEATED CELLS 100
[2016-07-01 07:37] LABS: PLATELET ESTIMATE SLT DEC (ADEQUATE); RBC MORPHOLOGY NORM (NORMAL)
[2016-07-01 16:12] LABS: INTACT PTH (ICMA) 662.7 PG/ML (10.0-65.0)
[2016-07-02 06:51] LABS: ALBUMIN 2.4 G/DL (3.5-5.0); CHLORIDE, SERUM 103 MMOL/L (96-112); CO2 (CARBON DIOXIDE) 25 MMOL/L (24-34); GLUCOSE, SERUM 80 MG/DL (60-99); PHOSPHORUS, SERUM 2.1 MG/DL (2.5-4.5); POTASSIUM, SERUM 4.1 MMOL/L (3.5-5.3); SODIUM, SERUM 139 MMOL/L (135-148)
[2016-07-02 06:55] LABS: BUN (BLOOD UREA NITROGEN) 24 MG/DL (6-23); CALCIUM, SERUM 6.5 MG/DL (8.5-10.4); CREATININE 4.14 MG/DL (0.55-1.02); GFR AFRICAN AMERICAN 12 ML/MIN (>=60); GFR NON AFRICAN AMERICAN 10 ML/MIN (>=60)
[2016-07-03 06:18] LABS: HEMATOCRIT 26.5 % (36.0-48.0); HEMOGLOBIN 9.4 g/dL (12.0-16.0); MEAN CORPUS HGB CONC 35.5 g/dL (32.0-36.0); MEAN CORPUSCULAR HEMOGLOB 30.6 pg (26.0-34.0); MEAN CORPUSCULAR VOLUME 86.3 fL (80-100); MEAN PLATELET VOLUME 9.4 fL (9.2-13.0); PLATELET COUNT 142 10/3/uL (150-400); RBC DISTRIBUTION WIDTH 16.7 % (12.0-16.0); RED CELL COUNT 3.07 10/6/uL (4.0-5.6); WHITE BLOOD CELLS 9.7 10/3/uL (4.5-10.5)
[2016-07-03 06:21] LABS: MANUAL DIFF YES %
[2016-07-03 06:35] LABS: ALBUMIN 2.4 G/DL (3.5-5.0); CHLORIDE, SERUM 104 MMOL/L (96-112); CO2 (CARBON DIOXIDE) 25 MMOL/L (24-34); GLUCOSE, SERUM 83 MG/DL (60-99); PHOSPHORUS, SERUM 2.5 MG/DL (2.5-4.5); SODIUM, SERUM 136 MMOL/L (135-148)
[2016-07-03 06:36] LABS: BUN (BLOOD UREA NITROGEN) 31 MG/DL (6-23); CALCIUM, SERUM 6.8 MG/DL (8.5-10.4); CREATININE 5.22 MG/DL (0.55-1.02); GFR AFRICAN AMERICAN 9 ML/MIN (>=60); GFR NON AFRICAN AMERICAN 8 ML/MIN (>=60); POTASSIUM, SERUM 5.1 MMOL/L (3.5-5.3)
[2016-07-03 06:39] LABS: BAND NEUTROPHILS 1 %; BASOPHILS 1 %; EOSINOPHILS 26 %; EOSINOPHILS ABSOLUTE (CALC) 2.52 10/3/uL (0.0-0.53); LYMPHOCYTES 7 %; LYMPHOCYTES ABSOLUTE (CALC) 0.68 10/3/uL (0.67-4.30); SEGMENTED NEUTROPHIL (0) 65 %; TOTAL NUCLEATED CELLS 100
[2016-07-03 06:40] LABS: PLATELET ESTIMATE ADQ (ADEQUATE)
[2016-07-03 06:41] LABS: SPHEROCYTES OCC (0-2/OIF)
[2016-07-03 06:44] LABS: PATH REVIEW YES
[2016-07-03 10:41] LABS: PATH REVIEW SEE PATHOLOGY REPORT
[2016-07-04 04:59] LABS: ALBUMIN 2.3 G/DL (3.5-5.0); CALCIUM, SERUM 7.4 MG/DL (8.5-10.4); CHLORIDE, SERUM 103 MMOL/L (96-112); CO2 (CARBON DIOXIDE) 24 MMOL/L (24-34); GFR AFRICAN AMERICAN 14 ML/MIN (>=60); GFR NON AFRICAN AMERICAN 12 ML/MIN (>=60); GLUCOSE, SERUM 80 MG/DL (60-99); PHOSPHORUS, SERUM 1.9 MG/DL (2.5-4.5); SODIUM, SERUM 138 MMOL/L (135-148)
[2016-07-04 05:05] LABS: BUN (BLOOD UREA NITROGEN) 20 MG/DL (6-23); CREATININE 3.59 MG/DL (0.55-1.02)
[2016-07-05 05:43] LABS: HEMATOCRIT 25.9 % (36.0-48.0); HEMOGLOBIN 8.8 g/dL (12.0-16.0); MEAN CORPUSCULAR HEMOGLOB 29.7 pg (26.0-34.0); MEAN CORPUSCULAR VOLUME 87.5 fL (80-100); MEAN PLATELET VOLUME 9.6 fL (9.2-13.0); RBC DISTRIBUTION WIDTH 16.3 % (12.0-16.0); RED CELL COUNT 2.96 10/6/uL (4.0-5.6); WHITE BLOOD CELLS 8.9 10/3/uL (4.5-10.5)
[2016-07-05 05:50] LABS: MANUAL DIFF YES %; PLATELET COUNT 207 10/3/uL (150-400)
[2016-07-05 06:00] LABS: ALBUMIN 2.4 G/DL (3.5-5.0); CALCIUM, SERUM 7.1 MG/DL (8.5-10.4); CHLORIDE, SERUM 98 MMOL/L (96-112); CO2 (CARBON DIOXIDE) 24 MMOL/L (24-34); GLUCOSE, SERUM 78 MG/DL (60-99); POTASSIUM, SERUM 4.6 MMOL/L (3.5-5.3); SODIUM, SERUM 135 MMOL/L (135-148)
[2016-07-05 06:03] LABS: BUN (BLOOD UREA NITROGEN) 31 MG/DL (6-23); CREATININE 5.03 MG/DL (0.55-1.02); GFR AFRICAN AMERICAN 10 ML/MIN (>=60); GFR NON AFRICAN AMERICAN 8 ML/MIN (>=60); PHOSPHORUS, SERUM 2.8 MG/DL (2.5-4.5)
[2016-07-05 06:57] LABS: EOSINOPHILS 32 %; EOSINOPHILS ABSOLUTE (CALC) 2.85 10/3/uL (0.0-0.53); LYMPHOCYTES 6 %; LYMPHOCYTES ABSOLUTE (CALC) 0.53 10/3/uL (0.67-4.30); MONOCYTES 8 %; MONOCYTES ABSOLUTE (CALC) 0.71 10/3/uL (0.21-1.20); NEUTROPHILS ABSOLUTE (CALC) 4.81 10/3/uL (2.02-8.40); PLATELET ESTIMATE ADQ (ADEQUATE); SEGMENTED NEUTROPHIL (0) 54 %; TOTAL NUCLEATED CELLS 100
[2016-07-05 06:58] LABS: ANISOCYTOSIS 1+ (5-10/OIF) (0-5/OIF); HELMET CELLS OCC (0-2/OIF)
[2016-07-06 06:56] LABS: HEMATOCRIT 27.9 % (36.0-48.0); HEMOGLOBIN 9.4 g/dL (12.0-16.0); MEAN CORPUS HGB CONC 33.7 g/dL (32.0-36.0); MEAN CORPUSCULAR HEMOGLOB 29.4 pg (26.0-34.0); MEAN CORPUSCULAR VOLUME 87.2 fL (80-100); MEAN PLATELET VOLUME 9.5 fL (9.2-13.0); PLATELET COUNT 226 10/3/uL (150-400); RBC DISTRIBUTION WIDTH 16.4 % (12.0-16.0); WHITE BLOOD CELLS 7.3 10/3/uL (4.5-10.5)
[2016-07-06 07:03] LABS: MANUAL DIFF YES %
[2016-07-06 07:20] LABS: ALBUMIN 2.2 G/DL (3.5-5.0); BUN (BLOOD UREA NITROGEN) 23 MG/DL (6-23); CALCIUM, SERUM 7.3 MG/DL (8.5-10.4); CHLORIDE, SERUM 101 MMOL/L (96-112); CO2 (CARBON DIOXIDE) 26 MMOL/L (24-34); GFR AFRICAN AMERICAN 13 ML/MIN (>=60); GFR NON AFRICAN AMERICAN 11 ML/MIN (>=60); GLUCOSE, SERUM 89 MG/DL (60-99); PHOSPHORUS, SERUM 1.9 MG/DL (2.5-4.5); POTASSIUM, SERUM 3.8 MMOL/L (3.5-5.3); SODIUM, SERUM 139 MMOL/L (135-148)
[2016-07-06 07:39] LABS: ANISOCYTOSIS 1+ (5-10/OIF) (0-5/OIF); BAND NEUTROPHILS 6 %; EOSINOPHILS 33 %; EOSINOPHILS ABSOLUTE (CALC) 2.41 10/3/uL (0.0-0.53); HYPOCHROMIA 1+ (3-10/OIF) (0-2/OIF); LYMPHOCYTES 9 %; LYMPHOCYTES ABSOLUTE (CALC) 0.66 10/3/uL (0.67-4.30); MONOCYTES 6 %; MONOCYTES ABSOLUTE (CALC) 0.44 10/3/uL (0.21-1.20); PLATELET ESTIMATE ADQ (ADEQUATE); SEGMENTED NEUTROPHIL (0) 46 %; TOTAL NUCLEATED CELLS 100
[2016-07-06] MEDS ORDERED: ZITH250 PO ×2 (12:44→12:45)
[2016-07-06] MEDS ORDERED: ROCALTROL 0.0.25 MCG PO (12:46)
[2016-07-06] MEDS ORDERED: TUMSROLL PO (12:47)
[2016-07-06] MEDS ORDERED: D 5000 (12:48)
[2016-07-06] MEDS ORDERED: FERROUS SULF325 M1 PO (12:48)
[2016-07-06] MEDS ORDERED: PEPCID40 MG PO (12:49)
== END 2016-07-06 15:05 | disposition home or self-care (01) | DRG 673 ==
LOC: ER 02:07 → ER/OF 03:43 → CCU 09:21 → 7NO 06-23 19:10 → SDC/OF 06-24 13:03 → 7NO 06-24 13:04
PROVIDERS: Family Medicine; Hospitalist; Internal Medicine; Internal Medicine Critical Care Medicine; Internal Medicine Nephrology; Internal Medicine Pulmonary Disease; Nurse Practitioner; Nurse Practitioner Family
DX: N17.9 Acute kidney failure, unspecified (principal); K31.811 Angiodysplasia of stomach and duodenum with bleeding; G93.49 Other encephalopathy; E87.2 Acidosis; I31.9 Disease of pericardium, unspecified; I12.0 Hypertensive chronic kidney disease with stage 5 chronic kidney disease or end stage renal disease; K26.9 Duodenal ulcer, unspecified as acute or chronic, without hemorrhage or perforation; D69.6 Thrombocytopenia, unspecified; E87.1 Hypo-osmolality and hyponatremia; M10.9 Gout, unspecified; E78.00 Pure hypercholesterolemia, unspecified; R91.1 Solitary pulmonary nodule; D64.9 Anemia, unspecified; E87.5 Hyperkalemia; R21 Rash and other nonspecific skin eruption; N18.6 End stage renal disease; R19.7 Diarrhea, unspecified; Z83.3 Family history of diabetes mellitus; Z82.49 Family history of ischemic heart disease and other diseases of the circulatory system; K29.70 Gastritis, unspecified, without bleeding; K29.80 Duodenitis without bleeding
CPT/HCPCS: 36415; 36430; 36558; 36569; 36600; 36821; 71010; 74176; 77001; 80048; 80053; 80061; 80069; 80074; 80076; 80202; 81001; 82043; 82272; 82306; 82330; 82570; 82805; 82962; 83010; 83605; 83615; 83735; 83880; 83970; 84100; 84145; 84155; 84165; 84300; 84443; 84484; 85014; 85018; 85025; 85379; 85610; 85652; 85730; 86022; 86850; 86900; 86901; 86920; 87040; 87070; 87086; 87205; 87389; 87493; 87493-59; 87641; 87804; 88305; 93005; 93306; 93880; 93975; 97110-GP; 97116-GP; 97161-GP; 97165-GO; 97168-GO; 97530-GP; 99291; A9270-GY; C1750; C1751; C9113; G0257; G0365; G8978-CK-GP; G8979-CI-GP; J0360; J0583; J0610; J0885; J1200; J1940; J2250; J2405; J2543; J2795; J3010; J3370; P9016; P9047; Q9966

== ENCOUNTER 2016-07-31 20:25 | Inpatient (IN) | payer MEDICARE ==
--- NOTE | ~2016-07-31 | DS ---
Discharge Summary [facility] [address] [place]. [address] NAME: KAROLINA CHA : 48 STATUS : DIS IN PAT#: [id number] AGE: 66 ADM/REG DATE : 07/31/16 MR#: [id number] REPORT SERV DATE: 08/13/16 DICTATED BY: MOOSE MORA DATE: 08/13/16 REPORT STATUS : Draft TRANSCRIBED BY: DANIELE DATE: 08/13/16 Data Collection from hospitalization DISCHARGE DIAGNOSES: 1. Anemia-multifactorial. 2. Recent lower gastrointestinal bleed. 3. End-stage renal disease, on hemodialysis. 4. Primary hypertension. 5. Multiple skin excoriations, secondary to itching. 6. Hypercholesterolemia. 7. Gout. 8. Nephrolithiasis. 9. History of eclampsia with history of multiple miscarriages. CONSULTATIONS: Amirah Hare MD PROCEDURES: Colonoscopy on 08/02/2016. DISCHARGE MEDICATIONS: Norvasc 10 mg twice a day, Rocaltrol 0.25 mcg daily, Tums 500 hours mg with meals, vitamin D 5000 units as instructed, Pepcid 40 mg daily, ferrous sulfate 325 mg twice a day, Bystolic 20 mg at bedtime, Protonix 40 mg twice a day, and Renvela Lei 1600 mg with meals. CONDITION AT DISCHARGE: Stable. DISPOSITION: The patient was discharged home on a renal diet with activities as instructed. She would follow up with Dr. Amirah Hare, in two weeks following discharge and would follow up with me in two weeks following discharge. HOSPITAL COURSE: This a 66-year-old female, who has a history of recent end-stage renal disease requiring hemodialysis and anemia which is multifactorial. She underwent an EGD on 07/07/2016, she had an outpatient followup colonoscopy scheduled, however, the patient reports that she canceled this and it had not been done. She reports that she had noticed blood in her stool on the morning prior to this admission. She had not noticed any decrease in her activity or strength or appetite. She was admitted to the hospital at this time for further evaluation and treatment. Upon admission, her white blood cell count was 14.8. Creatinine was 2.63. Her current iron supplementation was continued. She was transfused two units of packed red blood cells with hemodialysis. We are going to increase her Bystolic at bedtime. If needed, we would increase her Norvasc further for better blood pressure control. Her home regimen of calcitriol, calcium carbonate, vitamin D, and renal vitamin were continued. IV Protonix was continued. We would provide the patient with Benadryl for itching and moisturizer would be provided at the bedside. The patient was encouraged to avoid further scratching, secondary to increased risk of infection. She is at risk for cellulitis. The following day, she was seen by Dr. Amirah Hare, regarding GI bleed, rectal bleeding, and anemia. 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 She also had gastritis and duodenitis as well. White blood cell count was 11.2. Creatinine was 3.78. Discharge Summary [address] [address] NAME: KAROLINA CHA : 48 STATUS : DIS IN PAT#: [id number] AGE: 66 ADM/REG DATE : 07/31/16 MR#: [id number] REPORT SERV DATE: 08/13/16 DICTATED BY: MOOSE MORA DATE: 08/13/16 REPORT STATUS : Draft TRANSCRIBED BY: DANIELE DATE: 08/13/16 The patient had reported rectal bleeding and was anemic. It had been many years since she had undergone a colonoscopy. We are going to go ahead and prepare her for this. A clear liquid diet was started. She was placed on GoLYTELY bowel prep. She would be held n.p.o. after midnight. She was going to undergo a colonoscopy. 08/02/2016, she was taken to the endoscopic suite by Dr. Amirah Hare, where she underwent a colonoscopy. She tolerated this well. There were no complications. She was found to have non-thrombosed external hemorrhoids on perianal exam. There was a 3 to 5 mm polyp in the sigmoid colon and the cecum, resection was not attempted. There was diverticulosis in the entire descending colon. There were nonbleeding internal hemorrhoids. O2 saturation was 98% on room air. Discharge planning was performed. On 08/03/2016, hemodialysis therapy was performed. She had no dyspnea. She had no edema. She denied any shortness of breath, chest pain, nausea, or vomiting. She had a bowel movement the day previously and no blood was noted. Discharge instructions were given. Due to her improved and stable condition, she was discharged home with the above-stated instructions. Information collected by: Terri Zapata I submit the above information as my discharge summary. ADAM/DANIELE Moose Mora M.D. / [id number] CC: Gerardo Raines MD
--- NOTE | ~2016-07-31 | CN ---
Consultation Report [facility] [address] [place]. [address] NAME: KAROLINA FINN : 48 STATUS : ADM IN [facility]#: [id number] AGE: 66 ADM/REG DATE : 07/31/16 MR#: [id number] REPORT SERV DATE: 08/01/16 DICTATED BY: CARLYLE HARE DATE: 08/01/16 REPORT STATUS : Draft TRANSCRIBED BY: MODL DATE: 08/01/16 GI CONSULTATION DATE OF CONSULTATION: 08/01/2016 REASON FOR CONSULTATION: GI bleed, rectal bleeding and anemia. HISTORY OF PRESENT ILLNESS: Ms. Finn is a 66-year-old, [place] female, who had recently been hospitalized at [facility] for altered mental status and acute on chronic kidney injury and at that time, she was started on hemodialysis and she also had reported some melena and was anemic and an EGD had been performed on that hospitalization, which showed AVMs in her stomach, which were treated with argon plasma coagulation. She also had gastritis and duodenitis as well. PAST MEDICAL HISTORY: Chronic kidney disease stage 3, on hemodialysis, pulmonary nodule, kidney stones, gout, hypertension and dyslipidemia. FAMILY HISTORY: Diabetes and hypertension. SOCIAL HISTORY: No smoking, alcohol, or drug use. PAST SURGICAL HISTORY: . MEDICATIONS: Reviewed. ALLERGIES: REVIEWED. PHYSICAL EXAMINATION: VITAL SIGNS: The patient is afebrile. Vital signs are stable. GENERAL: The patient is somewhat somnolent, but very responsive and conversant. She just returned from hemodialysis earlier today. CARDIAC: S1, S2. CHEST: Clear. ABDOMEN: Soft, obese, nontender and nondistended. Bowel sounds normoactive. LABORATORY DATA: WBC 11.2, hemoglobin 6.6, hematocrit 19.9, platelets 246. Sodium 139, potassium 5.1, chloride 104, bicarb 29, BUN 30, creatinine 3.78, glucose 88. INR is 1. IMPRESSION AND PLAN: The patient reports rectal bleeding and is anemic. We had already performed her EGD earlier this year, which showed arteriovenous malformations in her stomach, which were treated, does not seem to have upper GI bleed at this time. It has been many many years since she has had a colonoscopy performed, so we will go ahead and prepare her for this on clear liquid diet today, GoLYTELY bowel prep, n.p.o. after midnight. Continue supportive care and monitor serial H and H, and transfuse as needed. We will go Consultation Report [place] [address] [place]. [address] NAME: KAROLINA FINN : 48 STATUS : ADM IN PAT#: [id number] AGE: 66 ADM/REG DATE : 07/31/16 MR#: [id number] REPORT SERV DATE: 08/01/16 DICTATED BY: CARLYLE HARE DATE: 08/01/16 REPORT STATUS : Draft TRANSCRIBED BY: MODMarcela DATE: 08/01/16 ahead and schedule colonoscopy for further evaluation and treatment. I reviewed the procedure indications, risks, benefits, and alternatives with her, and she is agreeable to proceed. Questions and concerns were addressed. CHEMA/DANIELE Carlyle Hare MD / [id number] CC: Todd Azul M.D.
--- NOTE | ~2016-07-31 | EGD ---
EGD REPORT [facility] [address] [place] [address] NAME: CYNDI FINN : [birth year] STATUS : ADM IN PAT#: [id number] AGE: 66 ADM/REG DATE : 07/31/16 MR#: [id number] REPORT SERV DATE: 08/02/16 DICTATED BY: CARLYLE JACKSON DATE: 08/02/16 REPORT STATUS : Draft TRANSCRIBED BY: [employer] DATE: 08/02/16 [facility] Patient Name: Cyndi Finn Date of : 1950 Attending MD: CARLYLE JACKSON, Procedure Date No Time: 08/02/2016 Procedure: Colonoscopy Indications: Rectal bleeding, Acute post hemorrhagic anemia Medicines: Propofol per Anesthesia Complications: No immediate complications. Estimated blood loss: None. Procedure: After I obtained informed consent, the scope was passed under direct vision. Throughout the procedure, the patient's blood pressure, pulse, and oxygen saturations were monitored continuously. The PCF [id number] was introduced through the anus and advanced to the cecum, identified by appendiceal orifice and ileocecal valve. The colonoscopy was performed with ease. The patient tolerated the procedure well. The quality of the bowel preparation was fair. Findings: The perianal exam was abnormal. Findings include non-thrombosed external hemorrhoids. A sessile polyp was found in the sigmoid colon in the cecum. The polyp was 3 to 5 mm in size. Polypectomy was not attempted due to setting of LGIB. Estimated blood loss: none. Multiple small-mouthed diverticula were found scattered in the entire colon. Non-bleeding internal hemorrhoids were found during retroflexion and were Grade I (internal hemorrhoids that do not prolapse). Impression: - Non-thrombosed external hemorrhoids found on perianal exam. - One 3 to 5 mm polyp in the sigmoid colon in the cecum. Resection not attempted. - Diverticulosis in the entire examined colon. - Non-bleeding internal hemorrhoids. Recommendation: - Return patient to [facility] for [facility] care. - Return to previous diet. - Continue present medications. - Repeat colonoscopy in 1 month because the bowel preparation was poor. - Return to GI clinic in 2 weeks. EGD REPORT [address] [place]. [address] NAME: CYNDI FINN : [birth year] STATUS : ADM IN [facility]#: [id number] AGE: 66 ADM/REG DATE : 07/31/16 MR#: [id number] REPORT SERV DATE: 08/02/16 DICTATED BY: CARLYLE JACKSON DATE: 08/02/16 REPORT STATUS : Draft TRANSCRIBED BY: [employer] DATE: 08/02/16 Procedure Code(s): --- Professional --- 67607, Colonoscopy, flexible, proximal to splenic flexure; diagnostic, with or without collection of specimen(s) by brushing or washing, with or without colon decompression (separate procedure) Diagnosis Code(s): --- Professional --- K64.0, First degree hemorrhoids K64.4, Residual hemorrhoidal skin tags K57.30, Diverticulosis of large intestine without perforation or abscess without bleeding D12.5, Benign neoplasm of sigmoid colon D12.0, Benign neoplasm of cecum K62.5, Hemorrhage of anus and rectum D62, Acute posthemorrhagic anemia CPT copyright 2013 [employer]. All rights reserved. The codes documented in this report are preliminary and upon commercial photographer review may be revised to meet current compliance requirements. CARLYLE JACKSON, 08/02/2016 4:17 PM This report has been signed electronically. Number of Addenda: 0 Note Initiated On: 08/02/2016 3:47 PM Scope Withdrawal Time 0 hours 9 minutes 23 seconds [address] [id number]
--- NOTE | ~2016-07-31 | HP ---
History And Physical [address] [place]. [address] NAME: KAROLINA CHA : [birth year] STATUS : ADM IN [facility]#: [id number] AGE: 66 ADM/REG DATE : 07/31/16 MR#: [id number] REPORT SERV DATE: 08/01/16 DICTATED BY: MOOSE MORA DATE: 08/01/16 REPORT STATUS : Draft TRANSCRIBED BY: MODMarcela DATE: 08/01/16 DATE OF ADMISSION: 07/31/2016 CHIEF COMPLAINT: Blood in stool. HISTORY OF PRESENT ILLNESS: The patient is a 66-year-old, [place] female, who is known to this service, with a history of recent end-stage renal disease requiring hemodialysis, and anemia with multifactorial. The patient was followed by Dr. Amirah Hare. She underwent EGD on 07/07/2016. She had an outpatient followup colonoscopy scheduled, however, the patient reports that she had re-canceled this, and has not been done. She reports she had noted blood in her stool early yesterday morning. She reports she has not noted any decrease in her activity or her strength or her appetite. The patient denies any associated symptoms of shortness of breath, chest pain, weakness, nausea or vomiting. ALLERGIES: NO KNOWN DRUG ALLERGIES. CODE STATUS: Full code. MEDICATIONS: Home medication to include: Norvasc 5 mg twice a day, calcitriol 0.25 mcg one cap p.o. daily, calcium carbonate 500 mg one tab with meals, vitamin D 5000 unit cap one p.o. every morning, Pepcid 40 mg p.o. daily, ferrous sulfate 325 mg p.o. twice a day, Bystolic 10 mg p.o. at bedtime, Renvela 800 mg two tabs p.o. with meals. PAST MEDICAL HISTORY: 1. History of end-stage renal disease, on hemodialysis. Receives hemodialysis on Friday, Friday, and Friday at [facility]. 2. Anemia, multifactorial with EGD done on 06/27/2016, revealed gastritis, multiple small angioectases found in her stomach, duodenal ulcer. 3. History of hypercholesteremia. 4. Gout. 5. Nephrolithiasis. 6. History of eclampsia with history of multiple miscarriages and pulmonary nodule. PAST SURGICAL HISTORY: 1. . 2. Left brachiocephalic arteriovenous fistula and right IJ PermCath placed on 06/24/2016. FAMILY HISTORY: Maternal grandmother, history of kidney disease, requiring hemodialysis. Younger sister, secondary to failed kidney transplant. Older brother's son had a kidney transplant at age 40+ years. The patient denies any history of diabetes, stroke, or any cancer in the family. SOCIAL HISTORY: The patient lives alone, but has neighbors and friends who assist with her care, transporting her to her Dialysis on Friday, Friday, and Friday. She is a . History And Physical [address] [facility] [place]. 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 The patient denies history of smoking, alcohol, or illicit drug use. REVIEW OF SYSTEMS: The patient reports no issue with her hearing or seeing things. She denies any complaint of shortness of breath. She denies any chest pain. She did report that she was unclear of her blood pressure medicine. She reports that she just continued her regular Norvasc which is 5 mg twice a day and her Bystolic 10 mg at night. She reports that her blood pressure tends to be on the high side, but she denies any problem with weakness or any blurred vision. The patient denies any history of nausea or vomiting. She reports that she had noted blood in her stool yesterday. She reports that she had cancelled her outpatient colonoscopy with Dr. Amirah Hare, and had rescheduled this for a later date. Patient reports she has been feeling stronger. She walks now without any walker. The patient with history of arthritis, but does not have any complaint of joint pain. The patient denies any history of bleeding. Denies any history of stroke. Patient does report she still has complaint of itching tendency all over her body. LABORATORY STUDY: On 07/31/2016: Sodium 139, potassium 4.8, chloride 101, CO2 of 31, BUN 22, creatinine of 2.63, glucose 113, GFR of 18. WBC 14.8, hemoglobin 6.8, hematocrit 20.4, and platelets of 311. AST of 33, bilirubin of 0.6, total protein 7.7, ALT of 147, INR 1.0, PT 13.4, PTT of 27.7. 08/01/2016 labs: Revealed sodium 139, potassium 5.1, chloride 102, CO2 of 29, BUN 30, creatinine of 3.78, glucose of 88, GFR of 12, mag of 1.9, phosphorus of 3.5, albumin of 2.7. WBC 11.4, hemoglobin 6.6, hematocrit 19.9, and platelet of 246. PHYSICAL EXAMINATION: VITAL SIGNS: Temp 98.0, pulse 84, respiratory rate 18, BP of 132/60. Her range in the hospital has been systolic of 132 to 165 and diastolic of 60 to 74. Patient's sat, O2 98% on room air. Weight 54.1 kg. BMI of 24.1. No documented urine output today. GENERAL: The patient is a pleasant [place] female, in no acute distress noted. HEENT: Normocephalic, atraumatic. Nonicteric bilaterally. Oral mucosa moist. NECK: No JVD noted. Right IJ PermCath with ongoing hemodialysis and blood transfusion noted. No neck pain on palpation. CHEST: No chest deformity noted. Right IJ PermCath. Dressing dry and intact. LUNGS: Clear to auscultation bilaterally. CV: Regular rate and rhythm. Normal S1, S2. No murmurs noted. ABDOMEN: Soft, positive bowel sounds x4 quadrants. No pain on palpation or guarding. : Deferred. EXTREMITIES: Noted no bilateral upper extremity edema. Left upper arm AV fistula palpable without any pain. Bilateral hand joint, noted arthritic changes. No edema or pain. Bilateral upper extremity strength is 5/5. Lower extremity, trace bilateral feet edema, likely dependent. No noted arthritic changes in the joint. No redness or swelling on the joint noted. Bilateral lower extremity strength is 5/5. SKIN: Noted dry skin on bilateral upper extremity. Noted new and old excoriation on face, arms, abdomen, and lower extremity. Noted new scratch excoriation on the left lower arm. History And Physical [address] [place] [place]. [address] NAME: KAROLINA CHA : [birth year] STATUS : ADM IN [facility]#: [id number] AGE: 66 ADM/REG DATE : 07/31/16 MR#: [id number] REPORT SERV DATE: 08/01/16 DICTATED BY: MOOSE MORA DATE: 08/01/16 REPORT STATUS : Draft TRANSCRIBED BY: DANIELE DATE: 08/01/16 ASSESSMENT: 1. Severe anemia, multifactorial with possible acute blood loss anemia. Now, chronic anemia secondary to renal disease. 2. End-stage renal disease, on hemodialysis. 3. Hypertension, primary. Not well controlled. 4. History of duodenal ulcer and multiple angiodysplasia. Gastritis seen on EGD on 06/27/2016. 5. History of gout. No flare-up. 6. History of hypercholesteremia. 7. Acute and chronic excoriation from itching. PLAN: 1. Pending GI consult. Today, the patient was seen by Dr. Amirah Hare, counseling her outpatient colonoscopy. The patient will likely need a colonoscopy inpatient for further evaluation of her possible lower GI bleed. Plan to check Hemoccult x3 today. Continue to monitor H and H. The patient is currently receiving total of 2 units of packed red blood cell with hemodialysis. Continue current iron supplement at this time. We will place the patient on clear liquid for now with possible pending scope. The patient is at risk for worsening anemia, hypoxia. 2. The patient with end-stage renal disease, requiring hemodialysis. The patient is followed by Nephrology and was seen today. The patient is receiving hemodialysis with blood transfusion today. Admission creatinine was 2.63. This a.m., her creatinine was 3.78. The patient is still with no reported urine output. 3. We will continue to monitor renal function, monitor weight. The patient is at risk for volume overload. The patient is receiving Bumex per Nephrology with blood transfusion today. 4. The patient with a history of hypertension. Her blood pressure range is not well controlled. The patient was discharged here in June with a Norvasc regimen of 10 mg twice a day and Bystolic 20 mg twice a day, but appears to have just resumed her home med regimen. We will plan to proceed with increasing her Bystolic 20 mg at bedtime, monitor her blood pressure and if needed, we will increase her Norvasc further for better blood pressure control. Also, monitor heart rate. Given the patient on both, Norvasc and Bystolic, the patient is at risk for CVA. 5. Continue other home regimen of calcitriol, calcium carbonate, vitamin D, renal vitamin. The patient is also on Protonix 40 mg IV q.12h. Unsure why patient at home is using Pepcid tab once a day. 6. We will provide the patient Benadryl 25 mg p.o. p.r.n. for itching. Also, we will ensure nursing staff to provide moisturizer at bedside, so the patient can use as needed. Encouraged the patient to avoid further scratching secondary to increased risk of infection. Patient is at risk for cellulitis. 7. Addressed code status with the patient. The patient desires full code. Discussed the plan of care with the patient, the patient agrees with the plan. We will ensure POLST form in chart. DICTATED BY: Rosibel Paul NP History And Physical [address] [address] NAME: KAROLINA CHA : [birth year] STATUS : ADM IN [facility]#: [id number] AGE: 66 ADM/REG DATE : 07/31/16 MR#: [id number] REPORT SERV DATE: 08/01/16 DICTATED BY: MOOSE MORA DATE: 08/01/16 REPORT STATUS : Draft TRANSCRIBED BY: DANIELE DATE: 08/01/16 CLP/DANIELE Moose Mora M.D. / [id number] CC: Moose Mora M.D.
[2016-07-31 18:37] LABS: BASOPHILS 0.3 %; BASOPHILS ABSOLUTE 0.04 10/3/uL (0.0-0.16); EOSINOPHILS ABSOLUTE 6.06 10/3/uL (0.0-0.53); IMMATURE GRANULOCYTES 0.5 %; IMMATURE GRANULOCYTES ABSOLUTE 0.08 10/3/uL (0.0-0.11); LYMPHOCYTES ABSOLUTE 1.42 10/3/uL (0.67-4.30); MEAN CORPUS HGB CONC 33.3 g/dL (32.0-36.0); MEAN CORPUSCULAR HEMOGLOB 31.1 pg (26.0-34.0); MEAN PLATELET VOLUME 8.5 fL (9.2-13.0); MONOCYTES 4.9 %; MONOCYTES ABSOLUTE 0.73 10/3/uL (0.21-1.20); NEUTROPHILS 43.7 %; NEUTROPHILS ABSOLUTE 6.46 10/3/uL (2.02-8.40); RBC DISTRIBUTION WIDTH 18.1 % (12.0-16.0)
[2016-07-31 18:39] LABS: HEMATOCRIT 20.4 % (36.0-48.0); HEMOGLOBIN 6.8 g/dL (12.0-16.0); MEAN CORPUSCULAR VOLUME 93.2 fL (80-100); PLATELET COUNT 311 10/3/uL (150-400); RED CELL COUNT 2.19 10/6/uL (4.0-5.6); WHITE BLOOD CELLS 14.8 10/3/uL (4.5-10.5)
[2016-07-31 18:41] LABS: LYMPHOCYTES 9.6 %; MANUAL DIFF NO %
[2016-07-31 18:47] LABS: PARTIAL THROMBO TIME 27.7 SEC (22.5-37.2)
[2016-07-31 18:49] LABS: PROTIME (NOT ORD) 13.4 SEC (12.0-14.5)
[2016-07-31 18:53] LABS: BUN (BLOOD UREA NITROGEN) 22 MG/DL (6-23); CHLORIDE, SERUM 101 MMOL/L (96-112); SGOT(AST) 33 U/L (5-40); SGPT(ALT) 35 U/L (5-65); SODIUM, SERUM 139 MMOL/L (135-148); TOTAL BILIRUBIN 0.6 MG/DL (0-1.2)
[2016-07-31 18:54] LABS: A/G RATIO 0.7 (0.7-1.9); ALBUMIN 3.2 G/DL (3.5-5.0); ALKALINE PHOSPHATASE 147 U/L (45-117); CALCIUM, SERUM 8.3 MG/DL (8.5-10.4); CO2 (CARBON DIOXIDE) 32 MMOL/L (24-34); CREATININE 2.63 MG/DL (0.55-1.02); GFR AFRICAN AMERICAN 21 ML/MIN (>=60); GFR NON AFRICAN AMERICAN 18 ML/MIN (>=60); GLOBULIN 4.5 G/DL (2.5-4.1); GLUCOSE, SERUM 113 MG/DL (60-99); POTASSIUM, SERUM 4.8 MMOL/L (3.5-5.3); TOTAL PROTEIN 7.7 G/DL (6.0-8.5)
[2016-07-31 19:08] LABS: ANISOCYTOSIS 1+ (5-10/OIF) (0-5/OIF); BASOPHILS 2 %; EOSINOPHILS 32 %; EOSINOPHILS ABSOLUTE (CALC) 4.74 10/3/uL (0.0-0.53); ER DIFF TAT 0 Hrs 35 Mins; LYMPHOCYTES 6 %; LYMPHOCYTES ABSOLUTE (CALC) 0.89 10/3/uL (0.67-4.30); MONOCYTES 2 %; NEUTROPHILS ABSOLUTE (CALC) 8.58 10/3/uL (2.02-8.40); PLATELET ESTIMATE ADQ (ADEQUATE); SEGMENTED NEUTROPHIL (0) 58 %; TOTAL NUCLEATED CELLS 100
[2016-07-31 19:09] LABS: OVALOCYTES 1+ (3-10/OIF) (0-2/OIF); PATH REVIEW YES; SPHEROCYTES FEW (3-10/OIF)
[~2016-07-31 20:25] MED LIST changes: +ASAB PO; +D 5000; +FERROUS SULF325 M1 PO; +NORV5 PO; +PEPCID40 MG PO; +PROBIOTIC PO; +ROCALTROL 0.0.25 MCG PO; +TUMSROLL PO; +ZITH250 PO
[2016-07-31] MEDS ORDERED: RENVELA800 MG PO (20:27)
[2016-08-01 09:11] LABS: MEAN CORPUS HGB CONC 33.2 g/dL (32.0-36.0); MEAN CORPUSCULAR HEMOGLOB 29.5 pg (26.0-34.0); MEAN PLATELET VOLUME 8.7 fL (9.2-13.0); PLATELET COUNT 246 10/3/uL (150-400); RBC DISTRIBUTION WIDTH 20.1 % (12.0-16.0); RED CELL COUNT 2.24 10/6/uL (4.0-5.6); WHITE BLOOD CELLS 11.2 10/3/uL (4.5-10.5)
[2016-08-01 09:18] LABS: HEMATOCRIT 19.9 % (36.0-48.0); HEMOGLOBIN 6.6 g/dL (12.0-16.0); MANUAL DIFF YES %; MEAN CORPUSCULAR VOLUME 88.8 fL (80-100)
[2016-08-01 09:19] LABS: ALBUMIN 2.7 G/DL (3.5-5.0); CALCIUM, SERUM 7.7 MG/DL (8.5-10.4); CHLORIDE, SERUM 104 MMOL/L (96-112); CO2 (CARBON DIOXIDE) 29 MMOL/L (24-34); POTASSIUM, SERUM 5.1 MMOL/L (3.5-5.3); SODIUM, SERUM 139 MMOL/L (135-148)
[2016-08-01 09:20] LABS: BUN (BLOOD UREA NITROGEN) 30 MG/DL (6-23); CREATININE 3.78 MG/DL (0.55-1.02); GFR AFRICAN AMERICAN 14 ML/MIN (>=60); GFR NON AFRICAN AMERICAN 12 ML/MIN (>=60); GLUCOSE, SERUM 88 MG/DL (60-99); PHOSPHORUS, SERUM 3.5 MG/DL (2.5-4.5)
[2016-08-01 10:37] LABS: ANISOCYTOSIS 1+ (5-10/OIF) (0-5/OIF); BAND NEUTROPHILS 3 %; EOSINOPHILS 46 %; EOSINOPHILS ABSOLUTE (CALC) 5.15 10/3/uL (0.0-0.53); LYMPHOCYTES 8 %; MACROCYTES 1+ (5-10/OIF) (0-5/OIF); MONOCYTES 3 %; MONOCYTES ABSOLUTE (CALC) 0.34 10/3/uL (0.21-1.20); NEUTROPHILS ABSOLUTE (CALC) 4.82 10/3/uL (2.02-8.40); PLATELET ESTIMATE ADQ (ADEQUATE); SEGMENTED NEUTROPHIL (0) 40 %; TOTAL NUCLEATED CELLS 100
[2016-08-01 10:38] LABS: ELLIPTOCYTES 1+ (3-10/OIF) (0-2/OIF); STOMATOCYTES 1+ (3-10/OIF) (0-2/OIF); TEARDROP SHAPED RBCS OCC (0-2/OIF)
[2016-08-01 17:19] LABS: HEMATOCRIT 33.7 % (36.0-48.0); HEMOGLOBIN 11.3 g/dL (12.0-16.0)
[2016-08-01 22:14] LABS: HEMATOCRIT 31.7 % (36.0-48.0); HEMOGLOBIN 10.9 g/dL (12.0-16.0)
[2016-08-02 04:47] LABS: HEMATOCRIT 31.2 % (36.0-48.0); HEMOGLOBIN 10.7 g/dL (12.0-16.0); MEAN CORPUS HGB CONC 34.3 g/dL (32.0-36.0); MEAN CORPUSCULAR HEMOGLOB 29.4 pg (26.0-34.0); MEAN PLATELET VOLUME 8.4 fL (9.2-13.0); PLATELET COUNT 176 10/3/uL (150-400); RBC DISTRIBUTION WIDTH 19.3 % (12.0-16.0); WHITE BLOOD CELLS 10.6 10/3/uL (4.5-10.5)
[2016-08-02 04:54] LABS: MANUAL DIFF YES %; MEAN CORPUSCULAR VOLUME 85.7 fL (80-100); RED CELL COUNT 3.64 10/6/uL (4.0-5.6)
[2016-08-02 05:19] LABS: ALBUMIN 3.1 G/DL (3.5-5.0); BUN (BLOOD UREA NITROGEN) 29 MG/DL (6-23); CALCIUM, SERUM 8.3 MG/DL (8.5-10.4); CHLORIDE, SERUM 103 MMOL/L (96-112); CO2 (CARBON DIOXIDE) 25 MMOL/L (24-34); CREATININE 3.56 MG/DL (0.55-1.02); GFR AFRICAN AMERICAN 15 ML/MIN (>=60); GFR NON AFRICAN AMERICAN 13 ML/MIN (>=60); GLUCOSE, SERUM 91 MG/DL (60-99); PHOSPHORUS, SERUM 3.2 MG/DL (2.5-4.5); POTASSIUM, SERUM 4.6 MMOL/L (3.5-5.3); SODIUM, SERUM 139 MMOL/L (135-148)
[2016-08-02 07:25] LABS: ANISOCYTOSIS 1+ (5-10/OIF) (0-5/OIF); EOSINOPHILS 47 %; EOSINOPHILS ABSOLUTE (CALC) 4.98 10/3/uL (0.0-0.53); LYMPHOCYTES 2 %; LYMPHOCYTES ABSOLUTE (CALC) 0.21 10/3/uL (0.67-4.30); MONOCYTES 3 %; MONOCYTES ABSOLUTE (CALC) 0.32 10/3/uL (0.21-1.20); NEUTROPHILS ABSOLUTE (CALC) 5.09 10/3/uL (2.02-8.40); PLATELET ESTIMATE ADQ (ADEQUATE); SEGMENTED NEUTROPHIL (0) 48 %; TOTAL NUCLEATED CELLS 100
[2016-08-02 12:54] LABS: HEMATOCRIT 34.3 % (36.0-48.0); HEMOGLOBIN 11.6 g/dL (12.0-16.0)
[2016-08-02 21:35] LABS: HEMOGLOBIN 10.3 g/dL (12.0-16.0)
[2016-08-02 21:36] LABS: HEMATOCRIT 30.7 % (36.0-48.0)
[2016-08-03 08:12] LABS: ALBUMIN 2.6 G/DL (3.5-5.0); CALCIUM, SERUM 8.2 MG/DL (8.5-10.4); CHLORIDE, SERUM 105 MMOL/L (96-112); CO2 (CARBON DIOXIDE) 27 MMOL/L (24-34); GFR AFRICAN AMERICAN 10 ML/MIN (>=60); GFR NON AFRICAN AMERICAN 8 ML/MIN (>=60); GLUCOSE, SERUM 109 MG/DL (60-99); PHOSPHORUS, SERUM 3.7 MG/DL (2.5-4.5); POTASSIUM, SERUM 4.2 MMOL/L (3.5-5.3); SODIUM, SERUM 140 MMOL/L (135-148)
[2016-08-03 08:13] LABS: BUN (BLOOD UREA NITROGEN) 43 MG/DL (6-23); CREATININE 5.04 MG/DL (0.55-1.02)
[2016-08-03 08:46] LABS: BASOPHILS 0.2 %; BASOPHILS ABSOLUTE 0.01 10/3/uL (0.0-0.16); EOSINOPHILS 38.3 %; EOSINOPHILS ABSOLUTE 1.97 10/3/uL (0.0-0.53); HEMATOCRIT 27.9 % (36.0-48.0); HEMOGLOBIN 9.5 g/dL (12.0-16.0); LYMPHOCYTES 13.2 %; LYMPHOCYTES ABSOLUTE 0.68 10/3/uL (0.67-4.30); MANUAL DIFF NO %; MEAN CORPUS HGB CONC 34.1 g/dL (32.0-36.0); MEAN CORPUSCULAR HEMOGLOB 29.5 pg (26.0-34.0); MEAN CORPUSCULAR VOLUME 86.6 fL (80-100); MEAN PLATELET VOLUME 8.8 fL (9.2-13.0); MONOCYTES 3.1 %; MONOCYTES ABSOLUTE 0.16 10/3/uL (0.21-1.20); NEUTROPHILS 45.2 %; NEUTROPHILS ABSOLUTE 2.33 10/3/uL (2.02-8.40); PLATELET COUNT 137 10/3/uL (150-400); RBC DISTRIBUTION WIDTH 19.2 % (12.0-16.0); RED CELL COUNT 3.22 10/6/uL (4.0-5.6); WHITE BLOOD CELLS 5.2 10/3/uL (4.5-10.5)
[2016-08-03 14:15] LABS: MEAN CORPUS HGB CONC 32.6 g/dL (32.0-36.0); MEAN CORPUSCULAR VOLUME 88.9 fL (80-100); MEAN PLATELET VOLUME 9.1 fL (9.2-13.0); PLATELET COUNT 170 10/3/uL (150-400); RBC DISTRIBUTION WIDTH 19.9 % (12.0-16.0); RED CELL COUNT 3.79 10/6/uL (4.0-5.6)
[2016-08-03 14:23] LABS: HEMATOCRIT 33.7 % (36.0-48.0); MANUAL DIFF YES %; WHITE BLOOD CELLS 8.8 10/3/uL (4.5-10.5)
[2016-08-03 14:31] LABS: ALBUMIN 2.9 G/DL (3.5-5.0); CALCIUM, SERUM 8.2 MG/DL (8.5-10.4); CHLORIDE, SERUM 103 MMOL/L (96-112); CO2 (CARBON DIOXIDE) 26 MMOL/L (24-34); GLUCOSE, SERUM 129 MG/DL (60-99); POTASSIUM, SERUM 3.9 MMOL/L (3.5-5.3); SODIUM, SERUM 135 MMOL/L (135-148)
[2016-08-03 14:32] LABS: BUN (BLOOD UREA NITROGEN) 19 MG/DL (6-23); GFR AFRICAN AMERICAN 17 ML/MIN (>=60); GFR NON AFRICAN AMERICAN 15 ML/MIN (>=60); PHOSPHORUS, SERUM 2.6 MG/DL (2.5-4.5)
[2016-08-03] MEDS ORDERED: NORV10 PO (14:34)
[2016-08-03] MEDS ORDERED: PROTONIX PO (14:35)
[2016-08-03] MEDS ORDERED: BYSTOLIC20 MG PO (14:36)
[2016-08-03 15:12] LABS: ANISOCYTOSIS 1+ (5-10/OIF) (0-5/OIF); BASOPHILS 1 %; BASOPHILS ABSOLUTE (CALC) 0.09 10/3/uL (0.0-0.16); EOSINOPHILS 37 %; EOSINOPHILS ABSOLUTE (CALC) 3.26 10/3/uL (0.0-0.53); LYMPHOCYTES 9 %; LYMPHOCYTES ABSOLUTE (CALC) 0.79 10/3/uL (0.67-4.30); MONOCYTES 3 %; MONOCYTES ABSOLUTE (CALC) 0.26 10/3/uL (0.21-1.20); PLATELET ESTIMATE ADQ (ADEQUATE); SEGMENTED NEUTROPHIL (0) 50 %; TOTAL NUCLEATED CELLS 100
== END 2016-08-03 16:24 | disposition home or self-care (01) | DRG 377 ==
LOC: ER 20:25 → 5SO 21:36 → 6NO 22:19
PROVIDERS: Family Medicine; Hospitalist; Internal Medicine Nephrology
PROC: 5A1D60Z (ICD-10-PCS; principal; 2016-08-01)
PROC: 30233N1 Transfusion of Nonautologous Red Blood Cells into Peripheral Vein, Percutaneous Approach (ICD-10-PCS; 2016-08-01)
PROC: 0DJD8ZZ Inspection of Lower Intestinal Tract, Via Natural or Artificial Opening Endoscopic (ICD-10-PCS; 2016-08-02)
DX: K92.1 Melena (principal); N18.6 End stage renal disease; I12.0 Hypertensive chronic kidney disease with stage 5 chronic kidney disease or end stage renal disease; D62 Acute posthemorrhagic anemia; I70.1 Atherosclerosis of renal artery; D12.0 Benign neoplasm of cecum; D12.5 Benign neoplasm of sigmoid colon; E78.00 Pure hypercholesterolemia, unspecified; Z99.2 Dependence on renal dialysis; E78.5 Hyperlipidemia, unspecified; T14.8 Other injury of unspecified body region; M10.9 Gout, unspecified; D63.1 Anemia in chronic kidney disease; K64.0 First degree hemorrhoids; K64.4 Residual hemorrhoidal skin tags; K64.8 Other hemorrhoids; K57.30 Diverticulosis of large intestine without perforation or abscess without bleeding; K31.819 Angiodysplasia of stomach and duodenum without bleeding; Z87.442 Personal history of urinary calculi; Z84.1 Family history of disorders of kidney and ureter
CPT/HCPCS: 36415; 36430; 80053; 80069; 83735; 85014; 85018; 85025; 85610; 85730; 86850; 86900; 86901; 86920; 93005; 96374; 99285; A9270-GY; C9113; G0257; J0360; J0885; P9016